=== PATIENT | female | born 1970 | race Caucasian/White ===

== ENCOUNTER 2019-03-31 12:17 | Inpatient (IN) | payer OTHER, SELFPAY ==
[2019-03-31] VITALS (7 sets, daily range): BP systolic 94–110; BP diastolic 54–79; PULSE 74–110; RESP 14–18; TEMP 37.3–37.8; O2SAT 96–100; BMI 34.0; BMI 33.8; BMI 33.9
--- NOTE | 2019-03-31 12:38 | CT_ITS ---
STUDY: CT ABDOMEN AND PELVIS WITH CONTRAST REASON FOR EXAM: Female, 48 years old. Left lower quadrant pain. Prior umbilical hernia. RADIATION DOSAGE (If Supplied By Facility): CTDIvol = ( 15.41 ) mGy, DLP = ( 1268.82 ) mGycm TECHNIQUE: Transaxial images were obtained from the dome of the diaphragm to the symphysis pubis without oral contrast. 100 IV/Oral Isovue 300 was administered. Sagittal and coronal images were reconstructed. Individualized dose optimization techniques were used for this CT. COMPARISON: None. FINDINGS: The visualized lung bases are unremarkable. The visualized portions of the heart are within normal limits. Normal liver. The patent portal vein diameter is 14 mm. Normal gallbladder and extrahepatic biliary system. Normal spleen. Normal pancreas. Normal bilateral adrenal glands. Normal right kidney. Normal left kidney. No hydronephrosis. Normal visualized stomach. There is diverticulosis, with thickening of the distal left colon wall and pericolonic inflammation, consistent with acute diverticulitis. There is a well-defined 4 cm pocket of gas along the medial margin of the distal aspect of the inflamed segment, and to a smaller gas pockets along the anterior margin of the mid and inflamed segment. There is also small volume free intraperitoneal gas. There are a few loops of mildly distended small bowel in the adjacent tissues of the left flank, likely reflecting a low-grade reactive ileus. There is non-visualization of the appendix. Normal abdominal aorta. Normal inferior vena cava. Normal retroperitoneum. Normal urinary bladder. There is a 2.45 x 2.25 x 2.75 cm umbilical hernia containing fat. There are degenerative changes of the lower thoracic and lower lumbar spine. 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 CT/Abdomen/Pelvis WITH Contrast IMPRESSION: 1. Acute diverticulitis of the distal most left colon. There are pockets of extraluminal gas within the pericolonic inflammatory changes, but not a thick walled/mature pericolonic abscess. Small volume free gas also present in the abdomen. No sign of bowel obstruction. 2. Small, fat-containing umbilical hernia. 3. 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 N.B. : The above information has been verbally conveyed by James Johnston MD to Katelynn Almeida MD, on 03/31/2019 14:49:21 (ET). Electronically Signed: James Johnston MD at 14:54 EDT , Service support ,
[2019-03-31 12:49] LABS: Absolute Lymphocyte Count 0.69 X10^3/ul (0.83-4.51); Absolute Neutrophil Count 10.5 X10^3/uL (2.0-7.7); Basophil# 0.01 X10^3/uL; Basophil% 0.1 % (0-1); Hematocrit 35.8 % (37-47); Hemoglobin 12.4 g/dl (12.0-15.0); Lymphocyte # 0.69 X10^3/ul (4.0); Lymphocyte % 5.7 % (19-41); Mean Corp Hgb Conc 34.6 g/gl (32-36); Mean Corpuscular Hgb 30.7 pg (27.0-32.0); Mean Corpuscular Volume 88.6 fL (81-99); Mean Platelet Vol. 9.1 fl (6.2-12.0); Monocyte# 0.88 X10^3/uL; Monocyte% 7.3 % (0-10); Neutrophil # 10.45 X10^3/uL (2.7-7.7); Neutrophil % 86.7 % (47-70); POSITIVE COUNT NO; POSITIVE DIFFERENTIAL NO; POSITIVE MORPHOLOGY NO; Platelet Count 198 K/mm3 (150-450); RBC Distribution Width CV 12.4 % (11.6-14.6); RBC Distribution Width SD 40.2 fl (35.1-43.9); Red Blood Count 4.04 M/mm3 (4.2-5.4); White Blood Count 12.1 K/mm3 (4.4-11.0)
[2019-03-31 13:00] LABS: AST(SGOT) 18 U/L (15-37); Alanine Aminotransfer ALT/SGPT 22 U/L (13-56); Albumin, Serum 3.5 g/dL (3.2-5.0); Alkaline Phosphatase 45 U/L (45-117); Anion Gap 8 (5-15); BUN 11 mg/dL (7-18); BUN/Creat Ratio 15.2 RATIO (10-20); Bilirubin, Direct 0.36 mg/dL (0.00-0.30); Calcium,Total 8.7 mg/dL (8.5-10.1); Chloride 108 mmol/L (98-107); Creatinine, Serum 0.72 mg/dL (0.55-1.02); EST Glomerular Filtration Rate 92 mL/min (>60); Est Glom Filt Rate - Afr Amer 112 mL/min (>60); Estimated Creatinine Clearance 94.94 ml/min; Globulin 3.6 g/dL (2.2-4.2); Glucose 130 mg/dL (74-106); Potassium 3.5 mmol/L (3.5-5.1); Protein, Total 7.1 g/dL (6.4-8.2); Sodium Level 137 mmol/L (136-145)
[2019-03-31] MEDS: 0.9% Normal Saline 1,000 ML 150 ML IV (13:05)
[2019-03-31 13:07] LABS: Internal QC Validated? YES +Cl - CLEAR BKGD; Pregnancy, Serum, hCG Quali. NEGATIVE Negative
[2019-03-31 14:08] LABS: White Blood Cells 0 SEEN /hpf (0-5)
[2019-03-31 14:14] LABS: Color, Urine Yellow (Yellow); Glucose, Dipstick Normal (Normal); Ketone-Dipstick 50 mg/dl (Negative); Leukocyte Esterase-Dipstick 25 /ul (Negative); Nitrite-Dipstick Negative (Negative); Occult Blood-Urine 25 /ul (Negative); Protein-Dipstick 15 mg/dl (Negative); Specific Gravity, Urine 1.015 (1.002-1.030); Urine Bilirubin Dipstick Negative (Negative); Urine Clarity Clear (Clear); Urine Urobilinogen Normal (Normal)
[2019-03-31 14:23] LABS: Bacteria 1+ /hpf (None Seen); Mucous, Urine 1+ /hpf (<or=2+); Red Blood Cells-Urine 0-5 SEEN /hpf (0-5); Squamous Epithelial Cells - UA 0-5 SEEN /hpf (5-10)
[2019-03-31] MEDS: Morphine 4 MG/ML Syringe IV (14:50)
[2019-03-31] MEDS: Ondansetron 4 MG/2 ML Vial IV (14:50)
--- NOTE | 2019-03-31 15:02 | ED.VISSUMM ---
- ER Visit Summary Date of Service: 03/31/19 Chief Complaint: [Abdominal pain History of Present Illness: The patient is a 48 F who presents with abdominal pain that started last evening, worse in the left lower quadrant. She reports subjective fever and chills. She denies nausea or vomiting. She states she had some recent constipation but that seems to be resolved. She denies urinary symptoms. Patient has had prior umbilical hernia repair. She denies any other past surgical history. Physical Examination: Blood pressure is 107/62, temperature 100.0, heart rate 83, respiratory rate 16, pulse ox 96% on room air. Patient is sitting upright in bed no acute distress. She is nontoxic-appearing. Head and neck examination is normal. Heart is regular rate and rhythm. Lung sounds are clear. Abdomen is soft with mild tenderness in the lower abdomen. There is no guarding or rebound. Hypoactive bowel sounds are present. Test Results: CBC was a white count of 12.1 with 86% neutrophils. Chemistry studies unremarkable. LFTs significant only for total bili of 1.7 and direct bili 0.36. Urinalysis is unremarkable. test negative. CT abdomen and pelvis with IV and p.o. contrast reveals acute diverticulitis of the distal left colon. There are pockets of extraluminal gas but no focal abscess. There is a small volume of free gas. Emergency Department Course and Treatment: Patient was given Toradol with EMS. She initially declined anything further for pain. After returning from CT scan she did request further pain medication was given a dose of morphine and Zofran. Once CT results were obtained patient is given a dose of Zosyn. I will speak with surgery. Treatment Plan: [] Disposition: Admit Impression: Diverticulitis with perforation This note was generated with Arrivelyation software. It may contain incorrect words, spelling, and punctuation that were not noted in review of the chart prior to signing ED Disposition - Plan for ED Patient: Referrals: Care Physician,No Primary [Primary Care Provider] -
--- NOTE | 2019-03-31 15:54 | PCM.HP.STD ---
History of Present Illness Date of Admission: 03/31/19 The patient is a 48 year old F presented to the ER due to left lower quadrant pain. Patient states pain started at 8 PM yesterday. Patient had pizza and strawberries for dinner. Patient denies he denies any nausea or vomiting and did have a little bit of flatus yesterday and a normal bowel movement around noon. Patient states the left lower quadrant pain got worse this morning right rated at 8/10 currently it is a 5/10. Patient has not had anything to eat today. Did states she had fevers and chills last night. Patient's temperature is currently 100. Patient states in the past she may have had another episode however it resolved on its own she is never had to get antibiotics. Patient has never had a colonoscopy. Denies any family history of colon cancer. Patient's only surgical history umbilical hernia repair with mesh about 2 years ago in [place]. Patient CT abdomen pelvis which shows sigmoid diverticulitis with 2 air pockets larger one is 4 cm- ? in colon, no obvious abscess or free fluid, umbilical hernia with fat. Patient's white blood count is 12.1 patient is getting Zosyn IV in the ER. 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 Denies: Constipation, Diarrhea, Nausea, Vomiting Genitourinary: Denies: Dysuria Skin: Denies: Rash Neurological: Denies: Balance problems Psychiatric: Denies: Depression Hematologic/ Lymphatic: Denies: Easy Bleeding VTE Information - Inpt Only VTE Present on Admission: Yes VTE Mechan Device Prophylaxis: SCD's VTE Pharm Prophylaxis ordered?: No Reason prophylaxis not ordered:: Medical Contraindication - Possible need for surgery - Physical Exam General: Alert, Oriented x3, Cooperative, No apparent distress HEENT: Atraumatic Lungs: Normal air movement Cardiovascular: Regular rate Abdomen: Soft, Non-Distended, Passing Flatus, Obese, Tender - Left mid abdomen, no peritoneal signs Extremities: No clubbing, No cyanosis, No edema Skin: No rashes Neurological: Cranial nerves II-XII grossly intact Psych/Mental Status: Normal Affect Vital Signs Temp Pulse Resp BP Pulse Ox 100.0 F H 74 14 108/79 100 03/31/19 12:18 03/31/19 14:28 03/31/19 14:28 03/31/19 14:28 03/31/19 14:28 Oxygen Delivery Method Room Air Weight: 217 lb 2.485 oz Body Mass Index (BMI) 34.0 Laboratory Tests Past 24 Hrs 03/31/19 03/31/19 03/31/19 12:25 12:25 12:25 WBC 12.1 H RBC 4.04 L Hgb 12.4 Hct 35.8 L MCV 88.6 MCH 30.7 MCHC 34.6 RDW 12.4 RDW Differential 40.2 Plt Count 198 MPV 9.1 Immature Gran % (Auto) 0.200 Neut % (Auto) 86.7 H Lymph % (Auto) 5.7 L [place]elope % (Auto) 7.3 Eos % (Auto) 0.0 Baso % (Auto) 0.1 Absolute Neuts (auto) 10.5 H Absolute Lymphs (auto) 0.69 L Total Counted Not Reportable Sodium 137 Potassium 3.5 Chloride 108 H Carbon Dioxide 21.0 Anion Gap 8 BUN 11 Creatinine 0.72 Estim Creat Clear Calc 94.94 Est GFR (MDRD) Af Amer 112 Est GFR (MDRD) Non-Af 92 BUN/Creatinine Ratio 15.2 Glucose 130 H Calcium 8.7 Total Bilirubin 1.70 H Direct Bilirubin 0.36 H AST 18 ALT 22 Alkaline Phosphatase 45 Total Protein 7.1 Albumin 3.5 Globulin 3.6 Serum , Qual NEGATIVE Urine Color Urine Clarity Urine pH Ur Specific [place] Urine Protein Urine Glucose (UA) Urine Ketones Urine Occult Blood Urine Nitrite Urine Bilirubin Urine Urobilinogen Ur Leukocyte Esterase Urine RBC Urine WBC Ur Squamous Epith Cells Urine Bacteria Urine Mucus 03/31/19 13:58 WBC RBC Hgb Hct MCV MCH MCHC RDW RDW Differential Plt Count MPV Immature Gran % (Auto) Neut % (Auto) Lymph % (Auto) [place]elope % (Auto) Eos % (Auto) Baso % (Auto) Absolute Neuts (auto) Absolute Lymphs (auto) Total Counted Sodium Potassium Chloride Carbon Dioxide Anion Gap BUN Creatinine Estim Creat Clear Calc Est GFR (MDRD) Af Amer Est GFR (MDRD) Non-Af BUN/Creatinine Ratio Glucose Calcium Total Bilirubin Direct Bilirubin AST ALT Alkaline Phosphatase Total Protein Albumin Globulin Serum , Qual Urine Color Yellow Urine Clarity Clear Urine pH 6.0 Ur Specific [place] 1.015 Urine Protein 15 H Urine Glucose (UA) Normal Urine Ketones 50 H Urine Occult Blood 25 H Urine Nitrite Negative Urine Bilirubin Negative Urine Urobilinogen Normal Ur Leukocyte Esterase 25 H Urine RBC 0-5 SEEN Urine WBC 0 SEEN Ur Squamous Epith Cells 0-5 SEEN Urine Bacteria 1+ Urine Mucus 1+ Assessment/Plan 48-year-old female with perforated sigmoid diverticulitis with pockets of air?in colon, with some free air by liver 1. Discussed with patient we will keep her n.p.o./IV fluids/IV Zosyn 3.375 g IV every 8 hours. Discussed with patient that if her pain got worse or fevers or increased white blood cell count she would possibly need an urgent surgery which would consist of possible diagnostic laparoscopy, possible exploratory laparotomy, possible bowel resection. Discussed with patient the plan would be to keep her n.p.o. with IV fluids and IV antibiotics until her pain had resolved we also plan to get a follow-up CT abdomen pelvis in approximately 3 days. Patient and her family were agreeable with plan. All questions have been answered and had no further questions at this time. Meseret Gavin M.D. Pager: [phone] [facility] [address] [place] [address], [facility], [address] [place] [address] Office: [phone]
--- NOTE | 2019-03-31 15:58 | HP.PCM_ITS ---
History of Present Illness Date of Admission: 03/31/19 The patient is a 48 year old F presented to the ER due to left lower quadrant pain. Patient states pain started at 8 PM yesterday. Patient had pizza and strawberries for dinner. Patient denies he denies any nausea or vomiting and did have a little bit of flatus yesterday and a normal bowel movement around noon. Patient states the left lower quadrant pain got worse this morning right rated at 8/10 currently it is a 5/10. Patient has not had anything to eat today. Did states she had fevers and chills last night. Patient's temperature is currently 100. Patient states in the past she may have had another episode however it resolved on its own she is never had to get antibiotics. Patient has never had a colonoscopy. Denies any family history of colon cancer. Patient's only surgical history umbilical hernia repair with mesh about 2 years ago in [place]. Patient CT abdomen pelvis which shows sigmoid diverticulitis with 2 air pockets larger one is 4 cm- ? in colon, no obvious abscess or free fluid, umbilical hernia with fat. Patient's white blood count is 12.1 patient is getting Zosyn IV in the ER. 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 Denies: Constipation, Diarrhea, Nausea, Vomiting Genitourinary: Denies: Dysuria Skin: Denies: Rash Neurological: Denies: Balance problems Psychiatric: Denies: Depression Hematologic/ Lymphatic: Denies: Easy Bleeding VTE Information - Inpt Only VTE Present on Admission: Yes VTE Mechan Device Prophylaxis: SCD's VTE Pharm Prophylaxis ordered?: No Reason prophylaxis not ordered:: Medical Contraindication - Possible need for surgery - Physical Exam General: Alert, Oriented x3, Cooperative, No apparent distress HEENT: Atraumatic Lungs: Normal air movement Cardiovascular: Regular rate Abdomen: Soft, Non-Distended, Passing Flatus, Obese, Tender - Left mid abdomen, no peritoneal signs Extremities: No clubbing, No cyanosis, No edema Skin: No rashes Neurological: Cranial nerves II-XII grossly intact Psych/Mental Status: Normal Affect Vital Signs Temp Pulse Resp BP Pulse Ox 100.0 F H 74 14 108/79 100 03/31/19 12:18 03/31/19 14:28 03/31/19 14:28 03/31/19 14:28 03/31/19 14:28 Oxygen Delivery Method Room Air Weight: 217 lb 2.485 oz Body Mass Index (BMI) 34.0 Laboratory Tests Past 24 Hrs 03/31/19 03/31/19 03/31/19 12:25 12:25 12:25 WBC 12.1 H RBC 4.04 L Hgb 12.4 Hct 35.8 L MCV 88.6 MCH 30.7 MCHC 34.6 RDW 12.4 RDW Differential 40.2 Plt Count 198 MPV 9.1 Immature Gran % (Auto) 0.200 Neut % (Auto) 86.7 H Lymph % (Auto) 5.7 L Henry % (Auto) 7.3 Eos % (Auto) 0.0 Baso % (Auto) 0.1 Absolute Neuts (auto) 10.5 H Absolute Lymphs (auto) 0.69 L Total Counted Not Reportable Sodium 137 Potassium 3.5 Chloride 108 H Carbon Dioxide 21.0 Anion Gap 8 BUN 11 Creatinine 0.72 Estim Creat Clear Calc 94.94 Est GFR (MDRD) Af Amer 112 Est GFR (MDRD) Non-Af 92 BUN/Creatinine Ratio 15.2 Glucose 130 H Calcium 8.7 Total Bilirubin 1.70 H Direct Bilirubin 0.36 H AST 18 ALT 22 Alkaline Phosphatase 45 Total Protein 7.1 Albumin 3.5 Globulin 3.6 Serum , Qual NEGATIVE Urine Color Urine Clarity Urine pH Ur Specific [place] Urine Protein Urine Glucose (UA) Urine Ketones Urine Occult Blood Urine Nitrite Urine Bilirubin Urine Urobilinogen Ur Leukocyte Esterase Urine RBC Urine WBC Ur Squamous Epith Cells Urine Bacteria Urine Mucus 03/31/19 13:58 WBC RBC Hgb Hct MCV MCH MCHC RDW RDW Differential Plt Count MPV Immature Gran % (Auto) Neut % (Auto) Lymph % (Auto) Henry % (Auto) Eos % (Auto) Baso % (Auto) Absolute Neuts (auto) Absolute Lymphs (auto) Total Counted Sodium Potassium Chloride Carbon Dioxide Anion Gap BUN Creatinine Estim Creat Clear Calc Est GFR (MDRD) Af Amer Est GFR (MDRD) Non-Af BUN/Creatinine Ratio Glucose Calcium Total Bilirubin Direct Bilirubin AST ALT Alkaline Phosphatase Total Protein Albumin Globulin Serum , Qual Urine Color Yellow Urine Clarity Clear Urine pH 6.0 Ur Specific [place] 1.015 Urine Protein 15 H Urine Glucose (UA) Normal Urine Ketones 50 H Urine Occult Blood 25 H Urine Nitrite Negative Urine Bilirubin Negative Urine Urobilinogen Normal Ur Leukocyte Esterase 25 H Urine RBC 0-5 SEEN Urine WBC 0 SEEN Ur Squamous Epith Cells 0-5 SEEN Urine Bacteria 1+ Urine Mucus 1+ Assessment/Plan 48-year-old female with perforated sigmoid diverticulitis with pockets of air?in colon, with some free air by liver 1. Discussed with patient we will keep her n.p.o./IV fluids/IV Zosyn 3.375 g IV every 8 hours. Discussed with patient that if her pain got worse or fevers or increased white blood cell count she would possibly need an urgent surgery which would consist of possible diagnostic laparoscopy, possible exploratory laparotomy, possible bowel resection. Discussed with patient the plan would be to keep her n.p.o. with IV fluids and IV antibiotics until her pain had resolved we also plan to get a follow-up CT abdomen pelvis in approximately 3 days. Patient and her family were agreeable with plan. All questions have been answered and had no further questions at this time. Meseret Gavin M.D. Pager: [phone] [facility] [address] [place] [address], [facility], [address] [place] [address] Office: [phone]
--- NOTE | 2019-03-31 16:00 | ED.RN ---
CONTINUE TO WAIT FOR ATB. PHARMACY HAS BEEN CALLED BY IBETH UREÑA.
[2019-03-31] MEDS: Ketorolac 15 MG/ML Vial IV ×2 (19:10→22:58)
[2019-03-31] MEDS: 0.9% NaCl Peripheral Flush Adult/Peds IV ×2 (19:10→20:59)
[2019-03-31] MEDS: 0.9% Normal Saline 1,000 ML 999 ML IV ×2 (20:55→20:59)
--- NOTE | 2019-03-31 22:01 | PCM.PN.BLA ---
Progress Note Came see the patient due to her rate of 110 and blood pressure 94/58. Patient states her pain is about the same denies it being any worse. Patient did state that she had very little to drink today or after 8 PM yesterday. Patient did void after getting to the floor however it was not measured. Patient's blood pressures and pulse were taken with the monitor. Patient was given 2 L normal saline and the pressure and pulse were about the same from before the saline with the monitor. However when these were rechecked manually the heart rate was 72 and the systolic blood pressure was 102. Patient is not on any blood pressure meds and states that her blood pressure may run a little bit on the low side from the last time she had surgery for her umbilical hernia. We will continue monitoring the vital signs closely. Abdomen soft, nondistended, tender in the left mid abdomen no peritoneal signs. Patient understands that if her pain were to get worse or her vital signs are stable she would need urgent surgery.
[2019-04-01] VITALS (16 sets, daily range): BP systolic 84–108; BP diastolic 48–76; PULSE 60–121; RESP 16–39; TEMP 36.6–37.2; O2SAT 96–100; BMI 33.8
[2019-04-01] MEDS: Ketorolac 15 MG/ML Vial IV (03:52)
[2019-04-01 06:14] LABS: Absolute Lymphocyte Count 1.06 X10^3/ul (0.83-4.51); Absolute Neutrophil Count 10.9 X10^3/uL (2.0-7.7); Basophil# 0.01 X10^3/uL; Basophil% 0.1 % (0-1); Hematocrit 34.5 % (37-47); Hemoglobin 11.5 g/dl (12.0-15.0); Lymphocyte # 1.06 X10^3/ul (4.0); Lymphocyte % 8.5 % (19-41); Mean Corp Hgb Conc 33.3 g/gl (32-36); Mean Corpuscular Hgb 30.1 pg (27.0-32.0); Mean Corpuscular Volume 90.3 fL (81-99); Mean Platelet Vol. 9.3 fl (6.2-12.0); Monocyte# 0.39 X10^3/uL; Monocyte% 3.1 % (0-10); Neutrophil # 10.92 X10^3/uL (2.7-7.7); Platelet Count 189 K/mm3 (150-450); RBC Distribution Width CV 12.9 % (11.6-14.6); RBC Distribution Width SD 41.6 fl (35.1-43.9); Red Blood Count 3.82 M/mm3 (4.2-5.4); White Blood Count 12.4 K/mm3 (4.4-11.0)
[2019-04-01 06:35] LABS: AST(SGOT) 14 U/L (15-37); Alanine Aminotransfer ALT/SGPT 19 U/L (13-56); Albumin, Serum 2.6 g/dL (3.2-5.0); Alkaline Phosphatase 36 U/L (45-117); Anion Gap 10 (5-15); BUN 10 mg/dL (7-18); BUN/Creat Ratio 12.7 RATIO (10-20); Bilirubin, Direct 0.51 mg/dL (0.00-0.30); Calcium,Total 7.5 mg/dL (8.5-10.1); Chloride 113 mmol/L (98-107); Creatinine, Serum 0.79 mg/dL (0.55-1.02); EST Glomerular Filtration Rate 83 mL/min (>60); Est Glom Filt Rate - Afr Amer 101 mL/min (>60); Estimated Creatinine Clearance 86.53 ml/min; Globulin 3.4 g/dL (2.2-4.2); Glucose 100 mg/dL (74-106); POSITIVE COUNT NO; POSITIVE DIFFERENTIAL NO; Potassium 3.9 mmol/L (3.5-5.1); Sodium Level 144 mmol/L (136-145)
[2019-04-01 07:05] LABS: Differential Indicated SCAN CRITERIA MET; POSITIVE MORPHOLOGY YES
[2019-04-01 07:06] LABS: Differential Comment SCANNED; Platelet Estimate ADEQUATE (ADEQ)
--- NOTE | 2019-04-01 07:48 | PN.SURG_ITS ---
Subjective: Patient still having left-sided abdominal pain states is not any worse, pain is been controlled with Toradol patient's blood pressure is still been in the mid to high 90s for systolic which may be normal for her as her heart rates been between 60 and 70. Patient did have some flatus as well as some diarrhea. Her white blood count 12.4. - Physical Exam General: Alert, Oriented x3, Cooperative, No apparent distress HEENT: Atraumatic Lungs: Normal air movement Cardiovascular: Regular rate Abdomen: Soft, Non-Distended, Obese, Tender - Left mid/upper abdomen, no peritoneal signs Extremities: No clubbing, No cyanosis, No edema Neurological: Cranial nerves II-XII grossly intact Psych/Mental Status: Normal Affect Vital Signs Temp Pulse Resp BP Pulse Ox 98.8 F 68 16 96/60 100 04/01/19 06:59 04/01/19 06:59 04/01/19 06:59 04/01/19 06:59 04/01/19 06:59 Oxygen Delivery Method Room Air Weight: 216 lb 4.375 oz Body Mass Index (BMI) 33.8 Intake and Output for Last 24 Hours 03/30/19 03/31/19 04/01/19 23:59 23:59 23:59 Intake Total 3940 / 3940 Output Total 200 / 200 Balance 3740 / 3740 Laboratory Tests Past 24 Hrs 03/31/19 03/31/19 03/31/19 12:25 12:25 12:25 WBC 12.1 H RBC 4.04 L Hgb 12.4 Hct 35.8 L MCV 88.6 MCH 30.7 MCHC 34.6 RDW 12.4 RDW Differential 40.2 Plt Count 198 MPV 9.1 Immature Gran % (Auto) 0.200 Neut % (Auto) 86.7 H Lymph % (Auto) 5.7 L [place] % (Auto) 7.3 Eos % (Auto) 0.0 Baso % (Auto) 0.1 Absolute Neuts (auto) 10.5 H Absolute Lymphs (auto) 0.69 L Total Counted Not Reportable Differential Comment Platelet Estimate Sodium 137 Potassium 3.5 Chloride 108 H Carbon Dioxide 21.0 Anion Gap 8 BUN 11 Creatinine 0.72 Estim Creat Clear Calc 94.94 Est GFR (MDRD) Af Amer 112 Est GFR (MDRD) Non-Af 92 BUN/Creatinine Ratio 15.2 Glucose 130 H Calcium 8.7 Total Bilirubin 1.70 H Direct Bilirubin 0.36 H AST 18 ALT 22 Alkaline Phosphatase 45 Total Protein 7.1 Albumin 3.5 Globulin 3.6 Serum , Qual NEGATIVE Urine Color Urine Clarity Urine pH Ur Specific [place] Urine Protein Urine Glucose (UA) Urine Ketones Urine Occult Blood Urine Nitrite Urine Bilirubin Urine Urobilinogen Ur Leukocyte Esterase Urine RBC Urine WBC Ur Squamous Epith Cells Urine Bacteria Urine Mucus 03/31/19 04/01/19 04/01/19 13:58 05:40 05:40 WBC 12.4 H RBC 3.82 L Hgb 11.5 L Hct 34.5 L MCV 90.3 MCH 30.1 MCHC 33.3 RDW 12.9 RDW Differential 41.6 Plt Count 189 MPV 9.3 Immature Gran % (Auto) 0.300 Neut % (Auto) 88.0 H Lymph % (Auto) 8.5 L [place] % (Auto) 3.1 Eos % (Auto) 0.0 Baso % (Auto) 0.1 Absolute Neuts (auto) 10.9 H Absolute Lymphs (auto) 1.06 Total Counted Not Reportable Differential Comment SCANNED Platelet Estimate ADEQUATE Sodium 144 Potassium 3.9 Chloride 113 H Carbon Dioxide 21.0 Anion Gap 10 BUN 10 Creatinine 0.79 Estim Creat Clear Calc 86.53 Est GFR (MDRD) Af Amer 101 Est GFR (MDRD) Non-Af 83 BUN/Creatinine Ratio 12.7 Glucose 100 Calcium 7.5 L Total Bilirubin 2.50 H Direct Bilirubin 0.51 H AST 14 L ALT 19 Alkaline Phosphatase 36 L Total Protein 6.0 L Albumin 2.6 L Globulin 3.4 Serum , Qual Urine Color Yellow Urine Clarity Clear Urine pH 6.0 Ur Specific [place] 1.015 Urine Protein 15 H Urine Glucose (UA) Normal Urine Ketones 50 H Urine Occult Blood 25 H Urine Nitrite Negative Urine Bilirubin Negative Urine Urobilinogen Normal Ur Leukocyte Esterase 25 H Urine RBC 0-5 SEEN Urine WBC 0 SEEN Ur Squamous Epith Cells 0-5 SEEN Urine Bacteria 1+ Urine Mucus 1+ Medical Necessity - Tobacco Use Smoking Status: Never smoker Assessment/Plan 48-year-old female with perforated sigmoid diverticulitis with pockets of air 1. We will continue n.p.o./IV fluids. Continue IV Zosyn. Again discussed with patient that if her pain got worse or fevers or increased white blood cell count she would possibly need an urgent surgery which would consist of possible diagnostic laparoscopy, possible exploratory laparotomy, possible bowel resection, possible ostomy. Blood counts 12.4 from 12.1 we will continue to monitor closely. Patient had no further questions this time. Meseret Gavin M.D. Pager: [phone] [facility] [address] [place] [address], [address] [place] [address] Office: [phone]
--- NOTE | 2019-04-01 09:58 | PCM.PN.BLA ---
Progress Note Patient is pain is worse this morning. Is not able to get up and move around well due to the pain. Discussed with patient that I am sure that this will get better without surgery. She was agreeable to proceed with diagnostic laparoscopy, possible laparotomy, possible bowel resection, possible ostomy. Did discuss the procedure as well as risks including but not limited to bleeding, infection/abscess, leak at anastomosis if one is done, injury to another organ including (small bowel, colon, ureter, etc.), hernia at incision sites, need for further surgery in the future since she is never had a colonoscopy and anesthesia. Patient and her family and all their questions answered have no further questions this time. We will plan for surgery early afternoon. Meseret Gavin M.D. Pager: [phone] [facility] [address] [place] [address], [address] [place] [address] Office: [phone]
--- NOTE | 2019-04-01 10:01 | PN_ITS ---
Progress Note Patient is pain is worse this morning. Is not able to get up and move around well due to the pain. Discussed with patient that I am sure that this will get better without surgery. She was agreeable to proceed with diagnostic laparoscopy, possible laparotomy, possible bowel resection, possible ostomy. Did discuss the procedure as well as risks including but not limited to bleeding, infection/abscess, leak at anastomosis if one is done, injury to another organ including (small bowel, colon, ureter, etc.), hernia at incision sites, need for further surgery in the future since she is never had a colonoscopy and anesthesia. Patient and her family and all their questions answered have no further questions this time. We will plan for surgery early afternoon. Meseret Gavin M.D. Pager: [phone] [facility] [address] [place] [address], [address] [place] [address] Office: [phone]
--- NOTE | 2019-04-01 10:12 | EKG12_ITS ---
Test Reason : PRE-OP Blood Pressure : / mmHG Vent. Rate : 108 BPM Atrial Rate : 108 BPM P-R Int : 150 ms QRS Dur : 076 ms QT Int : 304 ms P-R-T Axes : 036 071 052 degrees QTc Int : 407 ms Sinus tachycardia Otherwise normal ECG Confirmed by CLEMENTINE HARRISON, JENNIFER ([id number]), content editor YEFRI FREDERICK ([id number]) on 04/03/2019 11:39:35 AM Referred By: DEON Confirmed By:JENNIFER SPRING MD
[2019-04-01] MEDS: Morphine 2 MG/ML Syringe IV (10:30)
[2019-04-01] MEDS: 0.9% Normal Saline 1,000 ML 999 ML IV (10:40)
--- NOTE | 2019-04-01 11:12 | CASEMGMT ---
Social Work Note Pt is listed as self-pay and is [place]. [employer] Vergara, working with pt. Bhargavi Echeverria SIEBEL CONSULTANT, TELEVISION REPORTER
--- NOTE | 2019-04-01 12:02 | NURSING ---
REPORT CALLED TO IBETH PINA IN [facility]
--- NOTE | 2019-04-01 14:19 | SUR.PREOP ---
1410 FENTANYL 25MCG IV GIVEN, PULSE OX 94% ON RA. PAIN 6/10 TO ABD. WILL CONTINUE MONITOR.
--- NOTE | 2019-04-01 15:00 | COL_PTH ---
PATIENT: MANE AGUILAR LOC: [facility] U#:[id number] AGE/SX: 48/F ROOM: [facility] RE03/31/[address]: Dr. Meseret Gavin MD : 1970 BED: 1 DIS: 04/05/2019 SPEC #: [id number] RECD: 04/02/19 10:17 STATUS: STEWART RERenee #: [id number] BHUPENDRA: 04/01/19 15:[address]: Meseret Gavin DEPT: SURGICAL PATHOLOGY RECD BY: Jairo Oden ENTERED: 04/02/19 11:19 SP TYPE: COLON OTHR DR: Dr. Sukhjinder Poon MD No Primary Care Phys Tissues: A - Umbilical region B - Colon, NOS C - Transverse colon Procedures: Surgery Specimen Level IV Surgery Specimen Level V HEADER OPERATION: Laparoscopy converted to laparotomy, left hemicolectomy PRE-OP DIAGNOSIS: Left lower quadrant pain TISSUE SUBMITTED: A - Explanted umbilical mesh, B - Portion of sigmoid colon suture christensen distal, C - Proximal colon/distal transverse, marked with suture, unmarked in BTW segment of sigmoid and proximal MICROSCOPIC DIAGNOSIS A. Explanted umbilical mesh, removal: Synthetic mesh-like material. Fibrous tissue with associated foreign body type giant cells and acute and chronic inflammation. One benign lymph node. B. Sigmoid colon, segmental resection: Diverticular disease of colon with rupture and associated pericolonic abscess formation. Three out of three lymph nodes with no pathologic change. Focal acute serositis. Margins of excision with no pathologic change. C. Proximal colon/distal transverse colon, segmental resections: Mild nonspecific chronic inflammation and melanosis coli. AM:sudha 04/04/19 MICROSCOPIC DESCRIPTION Slides are reviewed. GROSS DESCRIPTION A - Received is one container labeled with the patient's name and not further designated. The specimen consists of a discoid fragment of pink-beaver soft tissue with embedding mesh-like material measuring 4.5 x 3.2 x 1 cm. Sections do not reveal mass lesions. Felling Machine Operator sections are submitted in one cassette. / AM:sudha 04/02/19 B - Received in fixative is one container labeled with the patient's name and designated sigmoid colon. The specimen consists of a 16.5 cm segment of bowel with attached beaver-yellow fibrofatty tissue. The mucosa is light beaver in color and thrown into normal fold. No mucosal mass lesions are identified. One end of the bowel is stapled. Serial sections reveal multiple diverticula some of which appear to be associated with balloon-like distensions ranging in size from 2 to 5.5 cm. One diverticulum is associated with a periluminal sinus measuring 3 cm in greatest dimension and suspicious for area of perforation. The attached fibrofatty tissue contains a number of grossly unremarkable lymph nodes. Felling Machine Operator sections are submitted as follows: 1 - open mucosal margin, 2 - closed mucosal margin, 3 & 4 - possible ruptured diverticulum, 5 - nonruptured diverticulum, 6 - diverticulum associated with marked dilation, 7 - customer relations representative lymph nodes, 8 - customer relations representative section of pericolic soft tissue in area of diverticulum. / AM:sudha 04/03/19 C - Received in fixative is one container labeled with the patient's name and designated proximal colon/distal transverse. The specimen consists of three fragments. One fragment consists of beaver-yellow fibrofatty tissue measuring 8 x 6 x 2 cm. Dissection of this fibrofatty tissue does not reveal mass lesions. The other two segments consist of one segment of bowel with a diameter of 3 cm in length and 2.5 cm. The attached fibrofatty tissue is sectioned and reveals yellow fatty tissue. The mucosa is smooth, glistening in color and thrown into normal folds. No mucosal mass lesions are identified. The other segment of bowel is similar in appearance but measures 6 cm in length and has a diameter of 3 cm. A?suture is present along one mucosal margin. This edge is inked in black ink. The opposite margin is inked in blue ink. The mucosa is thrown into normal folds. No mass lesions are identified. Felling Machine Operator sections on this second fragment are submitted in cassettes 3-6 (cassettes 3 & 4 contain the mucosal margins and cassettes 5 & 6 contain customer relations representative sections from mid portion of segment of bowel with suture). / AM:sudha 04/03/19 TC:2 CPT: 09754, 00809 x2
--- NOTE | 2019-04-01 17:47 | NURSING ---
REPORT CALLED TO IBETH BEARD IN ICU
--- NOTE | 2019-04-01 18:16 | PCM.OPRPT ---
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 Sigmoid colon, 2. Proximal colon/distal transverse colon with suture marked came the proximal colon margin, second specimen is the in between segment of the proximal colon and sigmoid colon Drains: Gimenez 200 cc Estimated Blood Loss (mL): 100 cc Fluids Replaced: 2600 cc Description of Procedure: Indications: 48-year-old female presented to the ER with perforated diverticulitis. This morning patient's pain was worse discussed with patient would plan for diagnostic laparoscopy, possible laparotomy, possible bowel resection, possible ostomy. Patient was agreeable to proceed. Description of procedure. Patient was brought to the operating room placed supine on the operating table. Timeout was completed verifying correct patient, procedure, site, positioning, special equipment prior to beginning procedure. General anesthesia was induced. A nasogastric tube was placed. Incision was made in the supraumbilical midline with a 15 blade scalpel deepened to the fascia. Fascia was elevated and incised. Peritoneum was elevated and incised. Entry into the peritoneum was confirmed visually. Virk trochars placed. The abdomen was insufflated to the 12 to 15 mmHg. Patient tolerated insufflation well. Laparoscope was inserted. Abdomen was noted to have purulent beaver/yellow fluid throughout, dilated small bowel. A 5 mm trocar was placed in the right lower quadrant. Purulent fluid was suctioned and sent for culture. Due to the adhesion of the omentum and the area of perforation in the descending/sigmoid colon unable to continue laparoscopically. Supraumbilical incision was converted to larger midline laparotomy incision with a 10 blade scalpel. Deepened to the fascia with electrocautery. A extra-large wound protector was placed. The white line of Toldt was incised once additional fluid had been suctioned. This was followed to the pelvis to mobilize the distal sigmoid. Next the white line of Toldt was followed and incised to the splenic flexure. Also started mobilization from the mid transverse colon to the splenic flexure. Once the splenic flexure was mobilized. YANI 100 cm stapler was used to come across the distal sigmoid. LigaSure impact was used to come across the mesentery. The colon was divided with YANI 100 cm stapler proximal to the area of perforation. The sigmoid colon was sent off the table as specimen with suture marking the distal end. Abdomen was copiously irrigated with 5 liters of saline. Wound protector was removed. A colostomy was planned in the mid rectus in the left upper quadrant of the abdomen. A disc of skin was removed the subcutaneous tissue was incised as well as the fascia. The rectus was split and the peritoneum was also incised. 2 fingers were easily able to fit through the ostomy incision. The distal descending colon was brought through the ostomy site, which initially appeared viable. 15 Fr round Hema was placed through the RLQ trocar incision. Gowns and gloves were changed. Fascia of the midline incision was closed with 1-0 PDS looped suture. Wound was irrigated. skin was loosing closed with skin cezar and saline soak tegaderm mert x 5 in wound. Returning to the colostomy, there was no bleeding with opening the colon to mature. Unable to pull up any additional colon, the wound was reopened and additional mesentery was divided with the ligasure impact to allow the distal transverse colon to reach the LUQ ostomy site without tension. The distal transverse colon appeared viable, colon was divided with metzenbaum scissors. The splenic flexure/prox. descending colon was sent to pathology with suture marking the proximal colon (distal transverse colon) of specimen. Again the Midline wound was closed with 1-0 looped PDS, wound was irrigated, skin closed with skin cezar and interrupted saline soaked tegaderms after wound was irrigated. HEMA was secured with 3-0 nylon suture. The distal transverse colostomy was matured in brook fashion with 3-0 vicryl interrupted sutures. stoma paste and appliance was applied. Pt tolerated procedure well and was able to be weaned off the small amount of pressors at the end of the case. Pt was extubated and taken to the ICU in stable condition. - Complications none
[2019-04-01] MEDS: Lactated Ringers 1,000 ML 999 ML IV (18:40)
[2019-04-01 19:25] LABS: Anion Gap 9 (5-15); BUN 9 mg/dL (7-18); BUN/Creat Ratio 15.2 RATIO (10-20); Chloride 115 mmol/L (98-107); Creatinine, Serum 0.59 mg/dL (0.55-1.02); EST Glomerular Filtration Rate 116 mL/min (>60); Est Glom Filt Rate - Afr Amer 140 mL/min (>60); Estimated Creatinine Clearance 115.86 ml/min; Glucose 99 mg/dL (74-106); Magnesium 1.2 mg/dL (1.6-2.6); Potassium 3.8 mmol/L (3.5-5.1); Sodium Level 142 mmol/L (136-145)
[2019-04-01] MEDS: Lactated Ringers 1,000 ML 150 ML IV (19:55)
[2019-04-01] MEDS: Magnesium Sulfate 4gm/100mL 4 GM/100 ML IV.SOLN. IV (20:13)
[2019-04-01] MEDS: 0.9% NaCl Peripheral Flush Adult/Peds IV ×2 (21:07→21:09)
[2019-04-01] MEDS: fentaNYL 100 MCG/2 ML Ampul 25 MCG IV (21:07)
[2019-04-02] VITALS (16 sets, daily range): BP systolic 87–127; BP diastolic 58–85; PULSE 82–99; RESP 16–25; TEMP 36.2–36.9; O2SAT 92–99
[2019-04-02] MEDS: Lactated Ringers 1,000 ML 150 ML IV ×3 (03:16→17:28)
[2019-04-02 04:28] LABS: Hematocrit 32.9 % (37-47); Hemoglobin 11.1 g/dl (12.0-15.0); Mean Corp Hgb Conc 33.7 g/gl (32-36); Mean Corpuscular Hgb 30.7 pg (27.0-32.0); Mean Corpuscular Volume 90.9 fL (81-99); Red Blood Count 3.62 M/mm3 (4.2-5.4); White Blood Count 5.8 K/mm3 (4.4-11.0)
[2019-04-02 04:29] LABS: Absolute Neutrophil Count 5.2 X10^3/uL (2.0-7.7); Lymphocyte % 5.2 % (19-41); Mean Platelet Vol. 9.3 fl (6.2-12.0); Monocyte# 0.27 X10^3/uL; Monocyte% 4.7 % (0-10); Neutrophil # 5.19 X10^3/uL (2.7-7.7); Neutrophil % 89.8 % (47-70); Platelet Count 132 K/mm3 (150-450); RBC Distribution Width SD 42.1 fl (35.1-43.9)
[2019-04-02 04:32] LABS: Differential Indicated SCAN CRITERIA MET; POSITIVE COUNT NO; POSITIVE DIFFERENTIAL YES; POSITIVE MORPHOLOGY YES
[2019-04-02 04:39] LABS: Phosphorus 1.7 mg/dL (2.5-4.9)
[2019-04-02 04:43] LABS: Anion Gap 9 (5-15); BUN 9 mg/dL (7-18); BUN/Creat Ratio 16.8 RATIO (10-20); Calcium,Total 7.3 mg/dL (8.5-10.1); Chloride 115 mmol/L (98-107); Creatinine, Serum 0.54 mg/dL (0.55-1.02); EST Glomerular Filtration Rate 130 mL/min (>60); Est Glom Filt Rate - Afr Amer 157 mL/min (>60); Estimated Creatinine Clearance 126.59 ml/min; Glucose 126 mg/dL (74-106); Magnesium 2.5 mg/dL (1.6-2.6); Potassium 3.8 mmol/L (3.5-5.1); Sodium Level 145 mmol/L (136-145)
[2019-04-02 04:53] LABS: Differential Comment SCANNED
--- NOTE | 2019-04-02 06:46 | PCM.CON.CC ---
Problem List (1) Perforated diverticulum of large intestine Status: Acute (2) Obesity Status: Chronic Qualifiers: Obesity type: due to excess calories Obesity classification: adult class 2 (BMI 35 - 39.9) Body mass index: BMI 36.0-36.9 (3) Severe sepsis Status: Acute Reason for Consult Date of Consultation: 04/02/19 Reason for Consultation: Hypotension History of Present Illness: The patient is a 48 year old F, with no reported past medical history, who presented to [facility] on 03/31/2019 secondary to abdominal pain in the left lower quadrant to continue to get worse. Patient had reported subjective fevers and chills, but denied any nausea or vomiting. Patient had had some recent constipation, but stated this has improved. Patient does report a previous umbilical hernia repair, but otherwise had no surgical history. On presentation to the ER, patient was hemodynamically stable with a blood pressure 107/62 and 96% on room air. There was some tenderness noted of the abdomen, but no guarding or rebound. Patient did have a leukocytosis and CT scan of the abdomen and pelvis revealed acute diverticulitis of the distal left colon with pockets of extraluminal gas without focal abscess. Patient was admitted to the floor for further evaluation Yesterday morning, patient was noted to have worsening of pain. Given patient's clinical condition, patient was taken urgently to surgery for diagnostic laparoscopy. During the case, patient was noted to have hypotension requiring pressor therapy. Patient did have an open left hemicolectomy with Marie's procedure and mobilization of the splenic flexure. Patient was placed empirically on Zosyn therapy secondary to significant abdominal fluid noted. Patient did receive approximately 3 L of fluid during the surgical procedure. Given patient's hypotension, patient was admitted to the intensive care unit overnight for observation. Review of systems otherwise negative x10 systems. Past Medical History Past Medical History (Chronic Problems): Chronic Problems Obesity (Chronic) Allergies No Known Allergies Allergy (Verified 03/31/19 12:21) Home Medications: Ambulatory Orders Medication Instructions Recorded NK 03/31/19 Surgical History: - - Umbilical hernia repair with mesh 2 years ago at [facility] Psychiatric History: No pertinent psych hx REGISTERED NURSE SURGICAL SERVICES History: No pertinent REGISTERED NURSE SURGICAL SERVICES history Lives: With Family Smoking Status: Never smoker Alcohol: None Drugs: None - *Family History Maternal History Items: Cancer - Kidney Review of Systems Comment: See HPI Patient Problems: Active and Suspected Problems Perforated diverticulum of large intestine (Acute) Severe sepsis (Acute) Subjective: This morning, patient reports pain is well controlled. Patient does not report any gas movement from the bowel. Nursing had reported significant saturation of the drainage associated with change in body position, but no blood has been noted. Patient has had approximately 120 cc of drainage from the CHRISTINA drain that has remained serosanguineous. Patient was weaned to room air. No pressors were required overnight. - Physical Exam General: Alert, Oriented x3, Cooperative, No apparent distress, Well developed, Well nourished, - - No conversational dyspnea noted. HEENT: Atraumatic, PERRLA, EOMI, Normocephalic, - - No scleral icterus or injection noted. Oral: Moist Mucosa, No Gingival or Mucosal Lesions/ Ulcerations Neck: Supple, No JVD, No Nodes, Trachea Midline Lungs: No rhonchi, No wheeze, No rales, Diminished, - - Symmetric expansion. No dullness to percussion. Cardiovascular: Regular rate, Regular Rhythm, Normal S1, Normal S2, No murmurs, No rub noted, No Gallop Abdomen: Soft, Bowel Sounds Not Present, Distended - Slightly, - - Incisional dressing is saturated with serosanguineous fluid. No bruising appreciated. Approximately 30 cc of serosanguineous fluid noted from CHRISTINA drain. No guarding. Extremities: No clubbing, No cyanosis, No edema Skin: No rashes, No breakdown, Incision Musculoskeletal: No Tenderness to Palpation of Joints or Extremities Lymphatic: No Cervical, Supraclavicular, or Inguinal Adenopathy Neurological: Cranial nerves II-XII grossly intact, Neuro grossly intact, Motor Exam 5/5 strength throughout Psych/Mental Status: Alert and oriented to time, place, person, mood and affect Vital Signs Temp Pulse Resp BP Pulse Ox 36.7 C 90 20 H 98/58 L 92 04/02/19 04:00 04/02/19 06:00 04/02/19 06:00 04/02/19 06:00 04/02/19 06:00 Oxygen Flow Rate (L/min) 1 Oxygen Delivery Method Room Air Weight: 104.6 kg Body Mass Index (BMI) 33.8 Intake and Output for Last 24 Hours 03/31/19 04/01/19 04/02/19 23:59 23:59 23:59 Intake Total 7283.6 / 7283.6 1132.8 / 1132.8 Output Total 930 / 930 580 / 580 Balance 6353.6 / 6353.6 552.8 / 552.8 Laboratory Tests Past 24 Hrs 04/01/19 04/01/19 04/02/19 05:40 18:55 04:15 WBC 5.8 RBC 3.62 L Hgb 11.1 L Hct 32.9 L MCV 90.9 MCH 30.7 MCHC 33.7 RDW 13.0 RDW Differential 42.1 Plt Count 132 L MPV 9.3 Immature Gran % (Auto) 0.300 Neut % (Auto) 89.8 H Lymph % (Auto) 5.2 L [place] % (Auto) 4.7 Eos % (Auto) 0.0 Baso % (Auto) 0.0 Absolute Neuts (auto) 5.2 Absolute Lymphs (auto) 0.30 L Total Counted Not Reportable Differential Comment SCANNED SCANNED Platelet Estimate ADEQUATE Sodium 142 Potassium 3.8 Chloride 115 H Carbon Dioxide 18.0 L Anion Gap 9 BUN 9 Creatinine 0.59 Estim Creat Clear Calc 115.86 Est GFR (MDRD) Af Amer 140 Est GFR (MDRD) Non-Af 116 BUN/Creatinine Ratio 15.2 Glucose 99 Calcium 7.0 L Phosphorus Magnesium 1.2 L 04/02/19 04/02/19 04:15 04:15 WBC RBC Hgb Hct MCV MCH MCHC RDW RDW Differential Plt Count MPV Immature Gran % (Auto) Neut % (Auto) Lymph % (Auto) [place] % (Auto) Eos % (Auto) Baso % (Auto) Absolute Neuts (auto) Absolute Lymphs (auto) Total Counted Differential Comment Platelet Estimate Sodium 145 Potassium 3.8 Chloride 115 H Carbon Dioxide 21.0 Anion Gap 9 BUN 9 Creatinine 0.54 L Estim Creat Clear Calc 126.59 Est GFR (MDRD) Af Amer 157 Est GFR (MDRD) Non-Af 130 BUN/Creatinine Ratio 16.8 Glucose 126 H Calcium 7.3 L Phosphorus 1.7 L Magnesium 2.5 Assessment/Plan Active and Suspected Problems Perforated diverticulum of large intestine (Acute) Severe sepsis (Acute) RECOMMENDATIONS: 1. Continue empiric antibiotic therapy 2. Increase activity as tolerated 3. Initiation of p.o. per surgery recommendations 4. Okay to leave the intensive care unit from my perspective IMPRESSIONS: 1. Severe sepsis secondary to perforated diverticulitis left colon Patient with significant serosanguineous drainage noted of the abdomen. Patient has responded well to surgical intervention. Blood pressures are relatively marginal, but this is likely a function of baseline decreased blood pressure. No pressors have been required. Patient is not requiring any fluid boluses. Patient's leukocytosis has responded appropriately. Clinical suspicion for pressor requirement secondary to anesthesia in the setting of severe sepsis. 2. Acute diverticulitis with perforation status post left colectomy postop day #1 Surgery is currently following. Patient tolerated the procedure well. Pain is well controlled at this time. Will increase activity as tolerated. Patient does have some serosanguineous drainage, but will defer to surgery on inspection of the incision. 3. Obesity/history of umbilical hernia repair Complicates care, management, recovery and prognosis. Code Visit Inpatient E&M: 47540 Init Hosp L3
--- NOTE | 2019-04-02 06:50 | CON.PCM_ITS ---
Problem List (1) Perforated diverticulum of large intestine Status: Acute (2) Obesity Status: Chronic Qualifiers: Obesity type: due to excess calories Obesity classification: adult class 2 (BMI 35 - 39.9) Body mass index: BMI 36.0-36.9 (3) Severe sepsis Status: Acute Reason for Consult Date of Consultation: 04/02/19 Reason for Consultation: Hypotension History of Present Illness: The patient is a 48 year old F, with no reported past medical history, who pre sented to [facility] on 03/31/2019 secondary to abdominal pain in the left lower quadrant to continue to get worse. Patient had reported subjective fevers and chills, but denied any nausea or vomiting. Patient had had some recent constipation, but stated this has improved. Patient does report a previous umbilical hernia repair, but otherwise had no surgical history. On presentation to the ER, patient was hemodynamically stable with a blood pressure 107/62 and 96% on room air. There was some tenderness noted of the abdomen, but no guarding or rebound. Patient did have a leukocytosis and CT scan of the abdomen and pelvis revealed acute diverticulitis of the distal left colon with pockets of extraluminal gas without focal abscess. Patient was admitted to the floor for further evaluation Yesterday morning, patient was noted to have worsening of pain. Given patient's clinical condition, patient was taken urgently to surgery for diagnostic laparoscopy. During the case, patient was noted to have hypotension requiring pressor therapy. Patient did have an open left hemicolectomy with Marie's procedure and mobilization of the splenic flexure. Patient was placed em pirically on Zosyn therapy secondary to significant abdominal fluid noted. Patient did receive approximately 3 L of fluid during the surgical procedure. Given patient's hypotension, patient was admitted to the intensive care unit overnight for observation. Review of systems otherwise negative x10 systems. 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 Patient does not report any gas movement from the bowel. Nursing had reported significant saturation of the drainage associated with change in body position, but no blood has been noted. Patient has had approximately 120 cc of drainage from the CHRISTINA drain that has remained serosanguineous. Patient was weaned to room air. No pressors were required overnight. - Physical Exam General: Alert, Oriented x3, Cooperative, No apparent distress, Well developed, Well nourished, - - No conversational dyspnea noted. HEENT: Atraumatic, PERRLA, EOMI, Normocephalic, - - No scleral icterus or injection noted. Oral: Moist Mucosa, No Gingival or Mucosal Lesions/ Ulcerations Neck: Supple, No JVD, No Nodes, Trachea Midline Lungs: No rhonchi, No wheeze, No rales, Diminished, - - Symmetric expansion. No dullness to percussion. Cardiovascular: Regular rate, Regular Rhythm, Normal S1, Normal S2, No murmurs, No rub noted, No Gallop Abdomen: Soft, Bowel Sounds Not Present, Distended - Slightly, - - Incisional dressing is saturated with serosanguineous fluid. No bruising appreciated. Approximately 30 cc of serosanguineous fluid noted from CHRISTINA drain. No guarding. Extremities: No clubbing, No cyanosis, No edema Skin: No rashes, No breakdown, Incision Musculoskeletal: No Tenderness to Palpation of Joints or Extremities Lymphatic: No Cervical, Supraclavicular, or Inguinal Adenopathy Neurological: Cranial nerves II-XII grossly intact, Neuro grossly intact, Motor Exam 5/5 strength throughout Psych/Mental Status: Alert and oriented to time, place, person, mood and affect Vital Signs Temp Pulse Resp BP Pulse Ox 36.7 C 90 20 H 98/58 L 92 04/02/19 04:00 04/02/19 06:00 04/02/19 06:00 04/02/19 06:00 04/02/19 06:00 Oxygen Flow Rate (L/min) 1 Oxygen Delivery Method Room Air Weight: 104.6 kg Body Mass Index (BMI) 33.8 Intake and Output for Last 24 Hours 03/31/19 04/01/19 04/02/19 23:59 23:59 23:59 Intake Total 7283.6 / 7283.6 1132.8 / 1132.8 Output Total 930 / 930 580 / 580 Balance 6353.6 / 6353.6 552.8 / 552.8 Laboratory Tests Past 24 Hrs 04/01/19 04/01/19 04/02/19 05:40 18:55 04:15 WBC 5.8 RBC 3.62 L Hgb 11.1 L Hct 32.9 L MCV 90.9 MCH 30.7 MCHC 33.7 RDW 13.0 RDW Differential 42.1 Plt Count 132 L MPV 9.3 Immature Gran % (Auto) 0.300 Neut % (Auto) 89.8 H Lymph % (Auto) 5.2 L [place] % (Auto) 4.7 Eos % (Auto) 0.0 Baso % (Auto) 0.0 Absolute Neuts (auto) 5.2 Absolute Lymphs (auto) 0.30 L Total Counted Not Reportable Differential Comment SCANNED SCANNED Platelet Estimate ADEQUATE Sodium 142 Potassium 3.8 Chloride 115 H Carbon Dioxide 18.0 L Anion Gap 9 BUN 9 Creatinine 0.59 Estim Creat Clear Calc 115.86 Est GFR (MDRD) Af Amer 140 Est GFR (MDRD) Non-Af 116 BUN/Creatinine Ratio 15.2 Glucose 99 Calcium 7.0 L Phosphorus Magnesium 1.2 L 04/02/19 04/02/19 04:15 04:15 WBC RBC Hgb Hct MCV MCH MCHC RDW RDW Differential Plt Count MPV Immature Gran % (Auto) Neut % (Auto) Lymph % (Auto) [place] % (Auto) Eos % (Auto) Baso % (Auto) Absolute Neuts (auto) Absolute Lymphs (auto) Total Counted Differential Comment Platelet Estimate Sodium 145 Potassium 3.8 Chloride 115 H Carbon Dioxide 21.0 Anion Gap 9 BUN 9 Creatinine 0.54 L Estim Creat Clear Calc 126.59 Est GFR (MDRD) Af Amer 157 Est GFR (MDRD) Non-Af 130 BUN/Creatinine Ratio 16.8 Glucose 126 H Calcium 7.3 L Phosphorus 1.7 L Magnesium 2.5 Assessment/Plan Active and Suspected Problems Perforated diverticulum of large intestine (Acute) Severe sepsis (Acute) RECOMMENDATIONS: 1. Continue empiric antibiotic therapy 2. Increase activity as tolerated 3. Initiation of p.o. per surgery recommendations 4. Okay to leave the intensive care unit from my perspective IMPRESSIONS: 1. Severe sepsis secondary to perforated diverticulitis left colon Patient with significant serosanguineous drainage noted of the abdomen. Patient has responded well to surgical intervention. Blood pressures are relatively marginal, but this is likely a function of baseline decreased blood pressure. No pressors have been required. Patient is not requiring any fluid boluses. Patient's leukocytosis has responded appropriately. Clinical suspicion for pressor requirement secondary to anesthesia in the setting of victoriano re sepsis. 2. Acute diverticulitis with perforation status post left colectomy postop day #1 Surgery is currently following. Patient tolerated the procedure well. Pain is well controlled at this time. Will increase activity as tolerated. Patient does have some serosanguineous drainage, but will defer to surgery on inspection of the incision. 3. Obesity/history of umbilical hernia repair Complicates care, management, recovery and prognosis. Code Visit Inpatient E&M: 11885 Init Hosp L3
--- NOTE | 2019-04-02 07:34 | PCM.PN.SRG ---
Patient Problems: Active and Suspected Problems Perforated diverticulum of large intestine (Acute) Severe sepsis (Acute) Subjective: Patient's pain is controlled with fentanyl due to the patient's low blood pressure which may be lower at baseline as well. Patient did not require any pressors overnight. Patient did have good urine output this morning Gimenez for I's and O's, no flatus in colostomy bag - Physical Exam General: Alert, Oriented x3, Cooperative, No apparent distress HEENT: - - NG in place minimal output Lungs: Normal air movement Cardiovascular: Regular rate Abdomen: Soft, Distended - Mild, Obese, Tender - Near midline incision, closed with cezar and saline soaked mert x5, colostomy mildly congested, no gas in bag only small amount of bloody fluid, - - CHRISTINA serosaguineous Extremities: No clubbing, No cyanosis Neurological: Cranial nerves II-XII grossly intact Psych/Mental Status: Normal Affect Vital Signs Temp Pulse Resp BP Pulse Ox 98 F 84 20 H 98/62 98 04/02/19 08:00 04/02/19 08:00 04/02/19 08:00 04/02/19 08:00 04/02/19 08:00 Oxygen Flow Rate (L/min) 1 Oxygen Delivery Method Room Air Weight: 230 lb 9.656 oz Body Mass Index (BMI) 33.8 Intake and Output for Last 24 Hours 03/31/19 04/01/19 04/02/19 23:59 23:59 23:59 Intake Total 7283.6 / 7283.6 1132.8 / 1132.8 Output Total 930 / 930 650 / 650 Balance 6353.6 / 6353.6 482.8 / 482.8 Microbiology Past 72 Hours 04/01/19 15:29 Gram Stain - Final Fluid - Peritoneal Laboratory Tests Past 24 Hrs 04/01/19 04/02/19 04/02/19 18:55 04:15 04:15 WBC 5.8 RBC 3.62 L Hgb 11.1 L Hct 32.9 L MCV 90.9 MCH 30.7 MCHC 33.7 RDW 13.0 RDW Differential 42.1 Plt Count 132 L MPV 9.3 Immature Gran % (Auto) 0.300 Neut % (Auto) 89.8 H Lymph % (Auto) 5.2 L [place] % (Auto) 4.7 Eos % (Auto) 0.0 Baso % (Auto) 0.0 Absolute Neuts (auto) 5.2 Absolute Lymphs (auto) 0.30 L Total Counted Not Reportable Differential Comment SCANNED Sodium 142 145 Potassium 3.8 3.8 Chloride 115 H 115 H Carbon Dioxide 18.0 L 21.0 Anion Gap 9 9 BUN 9 9 Creatinine 0.59 0.54 L Estim Creat Clear Calc 115.86 126.59 Est GFR (MDRD) Af Amer 140 157 Est GFR (MDRD) Non-Af 116 130 BUN/Creatinine Ratio 15.2 16.8 Glucose 99 126 H Calcium 7.0 L 7.3 L Phosphorus Magnesium 1.2 L 2.5 04/02/19 04:15 WBC RBC Hgb Hct MCV MCH MCHC RDW RDW Differential Plt Count MPV Immature Gran % (Auto) Neut % (Auto) Lymph % (Auto) [place] % (Auto) Eos % (Auto) Baso % (Auto) Absolute Neuts (auto) Absolute Lymphs (auto) Total Counted Differential Comment Sodium Potassium Chloride Carbon Dioxide Anion Gap BUN Creatinine Estim Creat Clear Calc Est GFR (MDRD) Af Amer Est GFR (MDRD) Non-Af BUN/Creatinine Ratio Glucose Calcium Phosphorus 1.7 L Magnesium Medical Necessity - Tobacco Use Smoking Status: Never smoker Assessment/Plan All Active Problems Perforated diverticulum of large intestine (Acute) Severe sepsis (Acute) 48-year-old female with perforated sigmoid diverticulitis/sepsis, postop day 1 left hemicolectomy, Marie's procedure 1. Continue NG/n.p.o./IV fluids until bowel function, continue CHRISTINA to bulb suction serosanguineous 2. Continue Zosyn IV antibiotics 3. Okay to move to [facility] 4. continue pain control patient may need IV fentanyl due to her normally lower baseline blood pressure 5. Gimenez keep for i/os may remove later today if continues to have good urine output/OOB to chair 6. Ambulate/up into the chair 7. Hypophosphatemia?replace Meseret Gavin M.D. Pager: [phone] [facility] [address] [place] [address], Outpatient Pavilion, [address] [place] [address] Office: [phone]
[2019-04-02] MEDS: Morphine 2 MG/ML Syringe IV ×2 (08:25→19:00)
--- NOTE | 2019-04-02 08:37 | PN.SURG_ITS ---
Patient Problems: Active and Suspected Problems Perforated diverticulum of large intestine (Acute) Severe sepsis (Acute) Subjective: Patient's pain is controlled with fentanyl due to the patient's low blood pressure which may be lower at baseline as well. Patient did not require any pressors overnight. Patient did have good urine output this morning Gimenez for I's and O's, no flatus in colostomy bag - Physical Exam General: Alert, Oriented x3, Cooperative, No apparent distress HEENT: - - NG in place minimal output Lungs: Normal air movement Cardiovascular: Regular rate Abdomen: Soft, Distended - Mild, Obese, Tender - Near midline incision, closed with cezar and saline soaked mert x5, colostomy mildly congested, no gas in bag only small amount of bloody fluid, - - CHRISTINA serosaguineous Extremities: No clubbing, No cyanosis Neurological: Cranial nerves II-XII grossly intact Psych/Mental Status: Normal Affect Vital Signs Temp Pulse Resp BP Pulse Ox 98 F 84 20 H 98/62 98 04/02/19 08:00 04/02/19 08:00 04/02/19 08:00 04/02/19 08:00 04/02/19 08:00 Oxygen Flow Rate (L/min) 1 Oxygen Delivery Method Room Air Weight: 230 lb 9.656 oz Body Mass Index (BMI) 33.8 Intake and Output for Last 24 Hours 03/31/19 04/01/19 04/02/19 23:59 23:59 23:59 Intake Total 7283.6 / 7283.6 1132.8 / 1132.8 Output Total 930 / 930 650 / 650 Balance 6353.6 / 6353.6 482.8 / 482.8 Microbiology Past 72 Hours 04/01/19 15:29 Gram Stain - Final Fluid - Peritoneal Laboratory Tests Past 24 Hrs 04/01/19 04/02/19 04/02/19 18:55 04:15 04:15 WBC 5.8 RBC 3.62 L Hgb 11.1 L Hct 32.9 L MCV 90.9 MCH 30.7 MCHC 33.7 RDW 13.0 RDW Differential 42.1 Plt Count 132 L MPV 9.3 Immature Gran % (Auto) 0.300 Neut % (Auto) 89.8 H Lymph % (Auto) 5.2 L [place] % (Auto) 4.7 Eos % (Auto) 0.0 Baso % (Auto) 0.0 Absolute Neuts (auto) 5.2 Absolute Lymphs (auto) 0.30 L Total Counted Not Reportable Differential Comment SCANNED Sodium 142 145 Potassium 3.8 3.8 Chloride 115 H 115 H Carbon Dioxide 18.0 L 21.0 Anion Gap 9 9 BUN 9 9 Creatinine 0.59 0.54 L Estim Creat Clear Calc 115.86 126.59 Est GFR (MDRD) Af Amer 140 157 Est GFR (MDRD) Non-Af 116 130 BUN/Creatinine Ratio 15.2 16.8 Glucose 99 126 H Calcium 7.0 L 7.3 L Phosphorus Magnesium 1.2 L 2.5 04/02/19 04:15 WBC RBC Hgb Hct MCV MCH MCHC RDW RDW Differential Plt Count MPV Immature Gran % (Auto) Neut % (Auto) Lymph % (Auto) [place] % (Auto) Eos % (Auto) Baso % (Auto) Absolute Neuts (auto) Absolute Lymphs (auto) Total Counted Differential Comment Sodium Potassium Chloride Carbon Dioxide Anion Gap BUN Creatinine Estim Creat Clear Calc Est GFR (MDRD) Af Amer Est GFR (MDRD) Non-Af BUN/Creatinine Ratio Glucose Calcium Phosphorus 1.7 L Magnesium Medical Necessity - Tobacco Use Smoking Status: Never smoker Assessment/Plan All Active Problems Perforated diverticulum of large intestine (Acute) Severe sepsis (Acute) 48-year-old female with perforated sigmoid diverticulitis/sepsis, postop day 1 left hemicolectomy, Marie's procedure 1. Continue NG/n.p.o./IV fluids until bowel function, continue CHRISTINA to bulb suction serosanguineous 2. Continue Zosyn IV antibiotics 3. Okay to move to [facility] 4. continue pain control patient may need IV fentanyl due to her normally lower baseline blood pressure 5. Gimenez keep for i/os may remove later today if continues to have good urine output/OOB to chair 6. Ambulate/up into the chair 7. Hypophosphatemia?replace Meseret Gavin M.D. Pager: [phone] [facility] [address] [place] [address], Outpatient Pavilion, [address] [place] [address] Office: [phone]
--- NOTE | 2019-04-02 09:45 | CASEMGMT ---
Addendum entered by Pravin Brown 04/02/19 14:14: Call received from Kanika @ [facility]. She states Dr Gavin agreeable to following pt after discharge for HHC and they are able to accept pt for HHC: [facility]. Pt made aware [facility] able to provide HHC services. She was also made aware that Dr Siegel is agreeable to taking her as a new pt and pt advised to call Dr Siegel's office @ discharge to make an appt with him. She voices understanding. Call placed to Dr Siegel's office and message left to inform them that Dr Gavin will follow pt for HHC services and also that pt plans to call them to make an appt. Original Note: Addendum entered by Pravin Brown 04/02/19 12:13: Call received from Dr Mark Siegel's office. Dr Siegel is agreeable to seeing pt but wants to see her 1st before being agreeable to following for HHC since it has been so long since she was seen last in his office. Call placed to Kanika @ [facility] and she was made aware. Kanika states she will contact Dr Gavin to inquire if she would be agreeable to following pt for HHC once pt is discharged. Original Note: Addendum entered by Pravin Brown 04/02/19 10:22: Call placed to [facility] and spoke to Kanika. Referral made for [facility]. Kanika made aware pt does not have PCP but awaiting call from Dr Mark Siegel to see if he is able to accept pt and follow for HHC. Original Note: RN CM MANAGEMENT AND BUDGET ANALYST CM to room to meet with patient for initial transition planning/care coordination assessment. RN CM introduced self and role at [facility]. Pt voices understanding and consents to assessment at this time. Pt sitting up in recliner chair in no distress at this time. Pt is A/O at this time and answers all questions appropriately. Care providers, pharmacy, and demographics verified/updated at this time. PCP: No PCP. States saw Dr Mark Siegel a couple yrs ago but is not current with him, but that is who she would be interested in following up with. Call placed to Dr Siegel's office @ [phone] and message left to see if he is accepting new pt's and able to follow pt for HHC. Awaiting return call. Specialists: none Preferred Pharmacy: [facility]. Insurance: [employer] Prescription Benefit: [employer] Living Will/HPOA: Does not have either. Is interested in talking with TIMI to complete paperwork. TIMI Salomon, made aware. LNOK: Father, 7 siblings. Living Arrangements: Lives with father, 4 brothers, and 2 sisters. Transportation: Hires van transport. DME: Denies using any DME. Will need Colostomy supplies @ discharge. Marimar Lainez, wound/ostomy nurse, to meet with pt today. HHC/SNF: No history of either. Would like [facility] for colostomy care/teaching. No preference of HHC agency. Pt wishes to return home and states has no concerns with going home at time of discharge. States CM to follow for any discharge planning/needs. Pt voices no further concerns/needs at this time. Advised pt to ask for CM if any further questions/concerns/needs arise. Voices understanding. PLAN: Home w/HHC: [facility] for colostomy teaching/care. Ashish DEAN RN CM
--- NOTE | 2019-04-02 10:42 | NURSING ---
stoma to the left upper quadrant is dark red in color. there is some bowel sweat noted to the appliance. no flatus noted at this time. discussed ostomy care, supplies, home health, etc. with the patient and family. they are requesting home health for a while at home and want to get the ostomy supplies through mail order. will order through [employer] at discharge. discussed with ARIN Costello. plan to change appliance Monday or with patient and family. pt denies further questions or needs at this time.
--- NOTE | 2019-04-02 11:16 | NURSING ---
wound photo: abdomen
[2019-04-02] MEDS: Ketorolac 15 MG/ML Vial IV (12:54)
[2019-04-02] MEDS: Enoxaparin 40 MG/0.4 ML Syringe SC (13:12)
--- NOTE | 2019-04-02 14:28 | CASEMGMT ---
Per RN CM patient wanted advance directives. SW met with patient, introduced self as well as role at [facility]. SW explained advance directives to patient. She asked SW to leave documents with her. SW explained if she would like to complete the documents while in the hospital she just needs to ask for Social Work. SW also told her about the outpatient service to complete documents. Umm DICK MSW
[2019-04-02] MEDS: 0.9% NaCl Peripheral Flush Adult/Peds IV (23:13)
[2019-04-03] VITALS (8 sets, daily range): BP systolic 109–135; BP diastolic 71–91; PULSE 69–83; RESP 16–18; TEMP 36.8–37.5; O2SAT 94–99
[2019-04-03] MEDS: Lactated Ringers 1,000 ML 100 ML IV ×2 (03:14→21:37)
[2019-04-03] MEDS: Ketorolac 15 MG/ML Vial IV ×2 (03:23→18:11)
[2019-04-03 06:00] LABS: Absolute Lymphocyte Count 0.89 X10^3/ul (0.83-4.51); Absolute Neutrophil Count 4.6 X10^3/uL (2.0-7.7); Hematocrit 29.6 % (37-47); Lymphocyte # 0.89 X10^3/ul (4.0); Mean Corp Hgb Conc 33.8 g/gl (32-36); Mean Corpuscular Hgb 30.5 pg (27.0-32.0); Mean Corpuscular Volume 90.2 fL (81-99); Monocyte# 0.48 X10^3/uL; Monocyte% 8.1 % (0-10); Neutrophil # 4.57 X10^3/uL (2.7-7.7); Neutrophil % 76.7 % (47-70); Platelet Count 156 K/mm3 (150-450); RBC Distribution Width CV 13.1 % (11.6-14.6); RBC Distribution Width SD 43.5 fl (35.1-43.9); Red Blood Count 3.28 M/mm3 (4.2-5.4)
[2019-04-03 06:04] LABS: POSITIVE COUNT NO; POSITIVE DIFFERENTIAL NO; POSITIVE MORPHOLOGY NO
--- NOTE | 2019-04-03 06:17 | PCA ---
04/03/19 0618 Discussed weight change with Mary CRISTINA
[2019-04-03 06:24] LABS: AST(SGOT) 16 U/L (15-37); Alanine Aminotransfer ALT/SGPT 13 U/L (13-56); Albumin, Serum 1.8 g/dL (3.2-5.0); Alkaline Phosphatase 34 U/L (45-117); Anion Gap 7 (5-15); BUN 13 mg/dL (7-18); Bilirubin, Direct 0.21 mg/dL (0.00-0.30); Calcium,Total 7.8 mg/dL (8.5-10.1); Chloride 114 mmol/L (98-107); Creatinine, Serum 0.43 mg/dL (0.55-1.02); EST Glomerular Filtration Rate 166 mL/min (>60); Est Glom Filt Rate - Afr Amer 201 mL/min (>60); Estimated Creatinine Clearance 158.97 ml/min; Globulin 3.4 g/dL (2.2-4.2); Glucose 93 mg/dL (74-106); Phosphorus 1.3 mg/dL (2.5-4.9); Protein, Total 5.2 g/dL (6.4-8.2); Sodium Level 144 mmol/L (136-145)
--- NOTE | 2019-04-03 07:40 | PCM.PN.SRG ---
Patient Problems: Active and Suspected Problems Perforated diverticulum of large intestine (Acute) Severe sepsis (Acute) Subjective: Patient's pain is controlled with pain meds. She was up to the chair twice yesterday did not walk in the halls but has been walking to the restroom. No flatus in colostomy bag - Physical Exam General: Alert, Oriented x3, Cooperative, No apparent distress HEENT: Atraumatic, - - NG in place Cardiovascular: Regular rate Abdomen: Soft, Distended - Mild to moderate, Obese, Tender - Near incision clean dry and intact, no peritoneal signs, - - Incision closed with cezar and 5 saline soaks mert, CHRISTINA serosanguineous Extremities: No clubbing, No cyanosis Neurological: Cranial nerves II-XII grossly intact Psych/Mental Status: Normal Affect Vital Signs Temp Pulse Resp BP Pulse Ox 98.2 F 83 16 119/72 94 04/03/19 03:17 04/03/19 03:17 04/03/19 03:17 04/03/19 03:17 04/03/19 03:17 Oxygen Flow Rate (L/min) 1 Oxygen Delivery Method Room Air Weight: 233 lb 7.512 oz Body Mass Index (BMI) 33.8 Intake and Output for Last 24 Hours 04/01/19 04/02/19 04/03/19 23:59 23:59 23:59 Intake Total 7283.6 / 7283.6 3906.8 / 3906.8 855 / 855 Output Total 930 / 930 1240 / 1240 30 / 30 Balance 6353.6 / 6353.6 2666.8 / 2666.8 825 / 825 Microbiology Past 72 Hours 04/01/19 15:29 Gram Stain - Final Fluid - Peritoneal Body Fluid Culture - Preliminary Gram negative phill Laboratory Tests Past 24 Hrs 04/03/19 04/03/19 05:30 05:30 WBC 6.0 RBC 3.28 L Hgb 10.0 L Hct 29.6 L MCV 90.2 MCH 30.5 MCHC 33.8 RDW 13.1 RDW Differential 43.5 Plt Count 156 MPV 9.0 Immature Gran % (Auto) 0.200 Neut % (Auto) 76.7 H Lymph % (Auto) 15.0 L [place] % (Auto) 8.1 Eos % (Auto) 0.0 Baso % (Auto) 0.0 Absolute Neuts (auto) 4.6 Absolute Lymphs (auto) 0.89 Total Counted Not Reportable Sodium 144 Potassium 4.0 Chloride 114 H Carbon Dioxide 23.0 Anion Gap 7 BUN 13 Creatinine 0.43 L Estim Creat Clear Calc 158.97 Est GFR (MDRD) Af Amer 201 Est GFR (MDRD) Non-Af 166 BUN/Creatinine Ratio 30.0 H Glucose 93 Calcium 7.8 L Phosphorus 1.3 L Total Bilirubin 0.80 Direct Bilirubin 0.21 AST 16 ALT 13 Alkaline Phosphatase 34 L Total Protein 5.2 L Albumin 1.8 L Globulin 3.4 Medical Necessity - Tobacco Use Smoking Status: Never smoker Assessment/Plan All Active Problems Perforated diverticulum of large intestine (Acute) Severe sepsis (Acute) 48-year-old female with perforated sigmoid diverticulitis/sepsis, postop day 2 left hemicolectomy, Marie's procedure 1. Continue NG/n.p.o./IV fluids until bowel function, continue CHRISTINA to bulb suction serous 2. Continue Zosyn IV antibiotics, normal white blood cell count with a decreasing left shift 3. continue pain control 4. Ambulate/up into the chair and ambulate halls 5. Hypophosphatemia?replace Meseret Gavin M.D. Pager: [phone] [facility] [address] [place] [address], [facility], [address] [place] [address] Office: [phone]
--- NOTE | 2019-04-03 07:43 | PN.SURG_ITS ---
Patient Problems: Active and Suspected Problems Perforated diverticulum of large intestine (Acute) Severe sepsis (Acute) Subjective: Patient's pain is controlled with pain meds. She was up to the chair twice yesterday did not walk in the halls but has been walking to the restroom. No flatus in colostomy bag - Physical Exam General: Alert, Oriented x3, Cooperative, No apparent distress HEENT: Atraumatic, - - NG in place Cardiovascular: Regular rate Abdomen: Soft, Distended - Mild to moderate, Obese, Tender - Near incision clean dry and intact, no peritoneal signs, - - Incision closed with cezar and 5 saline soaks mert, CHRISTINA serosanguineous Extremities: No clubbing, No cyanosis Neurological: Cranial nerves II-XII grossly intact Psych/Mental Status: Normal Affect Vital Signs Temp Pulse Resp BP Pulse Ox 98.2 F 83 16 119/72 94 04/03/19 03:17 04/03/19 03:17 04/03/19 03:17 04/03/19 03:17 04/03/19 03:17 Oxygen Flow Rate (L/min) 1 Oxygen Delivery Method Room Air Weight: 233 lb 7.512 oz Body Mass Index (BMI) 33.8 Intake and Output for Last 24 Hours 04/01/19 04/02/19 04/03/19 23:59 23:59 23:59 Intake Total 7283.6 / 7283.6 3906.8 / 3906.8 855 / 855 Output Total 930 / 930 1240 / 1240 30 / 30 Balance 6353.6 / 6353.6 2666.8 / 2666.8 825 / 825 Microbiology Past 72 Hours 04/01/19 15:29 Gram Stain - Final Fluid - Peritoneal Body Fluid Culture - Preliminary Gram negative phill Laboratory Tests Past 24 Hrs 04/03/19 04/03/19 05:30 05:30 WBC 6.0 RBC 3.28 L Hgb 10.0 L Hct 29.6 L MCV 90.2 MCH 30.5 MCHC 33.8 RDW 13.1 RDW Differential 43.5 Plt Count 156 MPV 9.0 Immature Gran % (Auto) 0.200 Neut % (Auto) 76.7 H Lymph % (Auto) 15.0 L [place] % (Auto) 8.1 Eos % (Auto) 0.0 Baso % (Auto) 0.0 Absolute Neuts (auto) 4.6 Absolute Lymphs (auto) 0.89 Total Counted Not Reportable Sodium 144 Potassium 4.0 Chloride 114 H Carbon Dioxide 23.0 Anion Gap 7 BUN 13 Creatinine 0.43 L Estim Creat Clear Calc 158.97 Est GFR (MDRD) Af Amer 201 Est GFR (MDRD) Non-Af 166 BUN/Creatinine Ratio 30.0 H Glucose 93 Calcium 7.8 L Phosphorus 1.3 L Total Bilirubin 0.80 Direct Bilirubin 0.21 AST 16 ALT 13 Alkaline Phosphatase 34 L Total Protein 5.2 L Albumin 1.8 L Globulin 3.4 Medical Necessity - Tobacco Use Smoking Status: Never smoker Assessment/Plan All Active Problems Perforated diverticulum of large intestine (Acute) Severe sepsis (Acute) 48-year-old female with perforated sigmoid diverticulitis/sepsis, postop day 2 left hemicolectomy, Marie's procedure 1. Continue NG/n.p.o./IV fluids until bowel function, continue CHRISTINA to bulb suction serous 2. Continue Zosyn IV antibiotics, normal white blood cell count with a decreasing left shift 3. continue pain control 4. Ambulate/up into the chair and ambulate halls 5. Hypophosphatemia?replace Meseret Gavin M.D. Pager: [phone] [facility] [address] [place] [address], [facility], [address] [place] [address] Office: [phone]
[2019-04-03] MEDS: Enoxaparin 40 MG/0.4 ML Syringe SC (08:47)
[2019-04-03] MEDS: 0.9% NaCl Peripheral Flush Adult/Peds IV ×3 (10:19→21:37)
--- NOTE | 2019-04-03 12:02 | NURSING ---
Removed colostomy appliance. there was no flatus noted in the appliance. stoma is well budded and dark pink. stoma measures approx 1 5/8 and is slightly oval in shape. stoma slightly edematous. peristomal skin is intact. educated patient and sister on appliance change. applied a 2 piece flat Cuddy appliance. pt will need cut to fit for at least 8 weeks since stoma size may change. placed Reed flange #[id number] and pouch #[id number] with a small amount of stoma paste. will send patient home with a few of these appliances as well as a script for home health care nurse for ostomy supplies. unsure of discharge plan at this time. pt has not passed flatus and still has NG tube in place. hoping to have another opportunity for more teaching with family, but if not Home Health will be continuing education with them. Colostomy booklet and step by step instruction on appliance change was given to patient and family.
--- NOTE | 2019-04-03 12:12 | NURSING ---
wound photo: midline surgical incision
--- NOTE | 2019-04-03 12:13 | NURSING ---
stoma photo: left upper abdomen
--- NOTE | 2019-04-03 13:42 | RAD_ITS ---
STUDY: X-RAY - ABDOMEN/PELVIS REASON FOR EXAM: Female, 48 years old. An NG tube placement. TECHNIQUE: Single AP view of the abdomen / pelvis. COMPARISON: None. FINDINGS: The tip of the nasogastric tube is in the body of the stomach. Small left pleural effusion with underlying infiltration and/or atelectasis. RAD/Abdomen Single View (Portable) IMPRESSION: The tip of the nasogastric tube is in the body of the stomach. Electronically Signed: Erik Story, at 14:14 EDT , Service support ,
[2019-04-03] MEDS: BENZOCAINE/MENTHOL 1 LOZENGE MUCOUS MEM (14:46)
[2019-04-04 03:34] VITALS: BP 114/68; PULSE 74; RESP 16; TEMP 36.9; O2SAT 96
[2019-04-04 05:40] LABS: Absolute Lymphocyte Count 1.24 X10^3/ul (0.83-4.51); Absolute Neutrophil Count 2.9 X10^3/uL (2.0-7.7); Eosinophil# 0.01 X10^3/uL; Eosinophils% 0.2 % (0-5); Hematocrit 29.4 % (37-47); Hemoglobin 9.8 g/dl (12.0-15.0); Lymphocyte # 1.24 X10^3/ul (4.0); Lymphocyte % 26.6 % (19-41); Mean Corp Hgb Conc 33.3 g/gl (32-36); Mean Corpuscular Hgb 30.4 pg (27.0-32.0); Mean Corpuscular Volume 91.3 fL (81-99); Mean Platelet Vol. 9.3 fl (6.2-12.0); Monocyte# 0.52 X10^3/uL; Monocyte% 11.1 % (0-10); Neutrophil # 2.88 X10^3/uL (2.7-7.7); Neutrophil % 61.7 % (47-70); Platelet Count 155 K/mm3 (150-450); RBC Distribution Width CV 12.8 % (11.6-14.6); RBC Distribution Width SD 42.3 fl (35.1-43.9); Red Blood Count 3.22 M/mm3 (4.2-5.4); White Blood Count 4.7 K/mm3 (4.4-11.0)
[2019-04-04 05:55] LABS: Anion Gap 8 (5-15); BUN 16 mg/dL (7-18); BUN/Creat Ratio 37.3 RATIO (10-20); Calcium,Total 7.7 mg/dL (8.5-10.1); Chloride 114 mmol/L (98-107); Creatinine, Serum 0.43 mg/dL (0.55-1.02); EST Glomerular Filtration Rate 168 mL/min (>60); Est Glom Filt Rate - Afr Amer 203 mL/min (>60); Estimated Creatinine Clearance 158.97 ml/min; Glucose 73 mg/dL (74-106); Phosphorus 2.3 mg/dL (2.5-4.9); Potassium 3.8 mmol/L (3.5-5.1); Sodium Level 145 mmol/L (136-145)
[2019-04-04 06:05] LABS: POSITIVE COUNT NO; POSITIVE DIFFERENTIAL NO; POSITIVE MORPHOLOGY NO
[2019-04-04] MEDS: Lactated Ringers 1,000 ML 100 ML IV (08:32)
[2019-04-04] MEDS: Enoxaparin 40 MG/0.4 ML Syringe SC (08:34)
--- NOTE | 2019-04-04 08:34 | PCM.PN.SRG ---
Patient Problems: Active and Suspected Problems Perforated diverticulum of large intestine (Acute) Severe sepsis (Acute) Subjective: Patient ambulating, pain controlled, saline mert were removed yesterday, still no flatus and colostomy bag - Physical Exam General: Alert, Oriented x3, Cooperative, No apparent distress Lungs: Normal air movement Cardiovascular: Regular rate Abdomen: Soft, Non-Distended, Obese, Tender - At incision, appropriate incision clean dry and intact with cezar, - - Colostomy pink, no flatus in bag, CHRISTINA serosanguineous?CHRISTINA removed at bedside. Extremities: No clubbing, No cyanosis, No edema Neurological: Cranial nerves II-XII grossly intact Psych/Mental Status: Normal Affect Vital Signs Temp Pulse Resp BP Pulse Ox 98.5 F 74 16 114/68 96 04/04/19 03:34 04/04/19 03:34 04/04/19 03:34 04/04/19 03:34 04/04/19 03:34 Oxygen Flow Rate (L/min) 1 Oxygen Delivery Method Room Air Weight: 232 lb 9.403 oz Body Mass Index (BMI) 33.8 Intake and Output for Last 24 Hours 04/02/19 04/03/19 04/04/19 23:59 23:59 23:59 Intake Total 3906.8 / 3906.8 1881 / 1881 1305 / 1305 Output Total 1240 / 1240 670 / 670 435 / 435 Balance 2666.8 / 2666.8 1211 / 1211 870 / 870 Microbiology Past 72 Hours 04/01/19 15:29 Gram Stain - Final Fluid - Peritoneal Body Fluid Culture - Final Escherichia coli Laboratory Tests Past 24 Hrs 04/04/19 04/04/19 05:25 05:25 WBC 4.7 RBC 3.22 L Hgb 9.8 L Hct 29.4 L MCV 91.3 MCH 30.4 MCHC 33.3 RDW 12.8 RDW Differential 42.3 Plt Count 155 MPV 9.3 Immature Gran % (Auto) 0.400 Neut % (Auto) 61.7 Lymph % (Auto) 26.6 [place] % (Auto) 11.1 H Eos % (Auto) 0.2 Baso % (Auto) 0.0 Absolute Neuts (auto) 2.9 Absolute Lymphs (auto) 1.24 Total Counted Not Reportable Sodium 145 Potassium 3.8 Chloride 114 H Carbon Dioxide 23.0 Anion Gap 8 BUN 16 Creatinine 0.43 L Estim Creat Clear Calc 158.97 Est GFR (MDRD) Af Amer 203 Est GFR (MDRD) Non-Af 168 BUN/Creatinine Ratio 37.3 H Glucose 73 L Calcium 7.7 L Phosphorus 2.3 L Medical Necessity - Tobacco Use Smoking Status: Never smoker Assessment/Plan All Active Problems Perforated diverticulum of large intestine (Acute) Severe sepsis (Acute) 48-year-old female with perforated sigmoid diverticulitis/sepsis, postop day 3 left hemicolectomy, Marie's procedure 1. Continue NG/n.p.o./IV fluids until bowel function, CHRISTINA removed at bedside 2. Continue Zosyn IV antibiotics plan to stop in a box after today 3. continue pain control 4. Ambulate/up into the chair and ambulate halls 5. I will not be here tomorrow, Dr. Garcia will be rounding tomorrow and the weekend. Meseret Gavin M.D. Pager: [phone] [facility] [address] [place] [address], [facility], [address] [place] [address] Office: [phone]
[2019-04-04] MEDS: Ketorolac 15 MG/ML Vial IV (08:45)
[2019-04-04 09:34] VITALS: BP 131/76; PULSE 71; RESP 16; TEMP 37.1; O2SAT 97
[2019-04-04] MEDS: Lactated Ringers 1,000 ML 75 ML IV ×2 (10:34→20:59)
--- NOTE | 2019-04-04 13:24 | PCM.DC.GS ---
<Meseret Gavin - Last Filed: 04/04/19 13:24> Discharge Diet: Light diet - advance as tolerated May shower in (days): 0 Lifting Restrictions: no lifting >20 lbs x4 wks, caution with long buggy rides for the first 4wk Call your doctor if your incision/area has: Continuous Slow Oozing, Sudden Increased Bleeding, Increased Pain/ Swelling, Increased Redness, Foul Smelling Discharge, Swelling at the incision site Call your doctor if you observe: Fever of 101 or Higher Change Dressing in (Days):: 1 - Do not put any lotions or creams on the incision Additional Instructions: Okay to take ibuprofen 400-600 mg PO q6hr PRN along with the Percocet. Avoid Tylenol since there is already Tylenol in the Percocet. If you do take Tylenol make sure that you do not go over 3 g a day. Okay to take Tylenol 650 mg p.o. every 6 hours as needed. Percocet does have 325 mg of Tylenol in each pill. Your [id number] Percocet may have 325 mg or 500 mg make sure to look at the bottle. Take all pain meds with food. Percocet can cause constipation recommend taking daily stool softener (i.e. Colace/docusate) while taking the pain meds. Recommend starting some MiraLAX in 1 to 2 days if no bowel movement. If still no bowel movement the following day recommend taking magnesium citrate half the bottle and waiting 4-6 hours if still no results take the other half the bottle. Allergies/Adverse Reactions: Allergies No Known Allergies Allergy (Verified 03/31/19 12:21) Medications to take at Discharge Oxycodone HCl/Acetaminophen [Percocet 5/325] 1 - 2 tablet PO Q6H PRN PRN 4 Days #20 tablet 04/04/19 The following prescriptions were given: Oxycodone HCl/Acetaminophen [Percocet 5/325] 1 - 2 tablet PO Q6H PRN PRN 4 Days #20 tablet PRN Reason: Pain Primary Care Physician: Care Physician,No Primary [Primary Care Provider] - Test Results: Test results from this visit will be discussed in further detail at your follow-up appointment, if applicable. Please Follow Up With: Meseret Gavin MD - After 5 PM/on the weekends call [phone] with any concerns When: Call the office for follow-up appt on April 12 or April 15 for staple removal Proposed Discharge Date: 04/05/19 <Augustine Garcia - Last Filed: 04/05/19 08:14> Discharge Activity: No Restrictions Test Results: Test results from this visit will be discussed in further detail at your follow-up appointment, if applicable.
--- NOTE | 2019-04-04 13:28 | DCINST_ITS ---
<Meseret Gavin - Last Filed: 04/04/19 13:24> Discharge Diet: Light diet - advance as tolerated May shower in (days): 0 Lifting Restrictions: no lifting >20 lbs x4 wks, caution with long buggy rides for the first 4wk Call your doctor if your incision/area has: Continuous Slow Oozing, Sudden Increased Bleeding, Increased Pain/ Swelling, Increased Redness, Foul Smelling Discharge, Swelling at the incision site Call your doctor if you observe: Fever of 101 or Higher Change Dressing in (Days):: 1 - Do not put any lotions or creams on the incision Additional Instructions: Okay to take ibuprofen 400-600 mg PO q6hr PRN along with the Percocet. Avoid Tylenol since there is already Tylenol in the Percocet. If you do take Tylenol make sure that you do not go over 3 g a day. Okay to take Tylenol 650 mg p.o. every 6 hours as needed. Percocet does have 325 mg of Tylenol in each pill. Your [id number] Percocet may have 325 mg or 500 mg make sure to look at the bottle. Take all pain meds with food. Percocet can cause constipation recommend taking daily stool softener (i.e. Colace/docusate) while taking the pain meds. Recommend starting some MiraLAX in 1 to 2 days if no bowel movement. If still no bowel movement the following day recommend taking magnesium citrate half the bottle and waiting 4-6 hours if still no results take the other half the bottle. Allergies/Adverse Reactions: Allergies No Known Allergies Allergy (Verified 03/31/19 12:21) Medications to take at Discharge Oxycodone HCl/Acetaminophen [Percocet 5/325] 1 - 2 tablet PO Q6H PRN PRN 4 Days #20 tablet 04/04/19 The following prescriptions were given: Oxycodone HCl/Acetaminophen [Percocet 5/325] 1 - 2 tablet PO Q6H PRN PRN 4 Days #20 tablet PRN Reason: Pain Primary Care Physician: Care Physician,No Primary [Primary Care Provider] - Test Results: Test results from this visit will be discussed in further detail at your follow- up appointment, if applicable. Please Follow Up With: Meseret Gavin MD - After 5 PM/on the weekends call [phone] with any concerns When: Call the office for follow-up appt on April 12 or April 15 for staple removal Proposed Discharge Date: 04/05/19 <Augustine Garcia - Last Filed: 04/05/19 08:14> Discharge Activity: No Restrictions Test Results: Test results from this visit will be discussed in further detail at your follow- up appointment, if applicable.
--- NOTE | 2019-04-04 13:30 | PCM.DC.SUM ---
<JoseAugustine - Last Filed: 04/05/19 08:15> Discharge Date and Diagnosis - Primary Discharge Diagnosis Active and Suspected Problems Perforated diverticulum of large intestine (Acute) Severe sepsis (Acute) - Secondary Discharge Diagnosis Chronic Problems Obesity (Chronic) Hospital Course and Treatment Imaging Results: Clinical Impression(s) from Imaging Studies Abdomen/Pelvis CT 03/31/19 12:38 IMPRESSION: 1. Acute diverticulitis of the distal most left colon. There are pockets of extraluminal gas within the pericolonic inflammatory changes, but not a thick walled/mature pericolonic abscess. Small volume free gas also present in the abdomen. No sign of bowel obstruction. 2. Small, fat-containing umbilical hernia. 3. 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 N.B. : The above information has been verbally conveyed by James Johnston MD to Katelynn Almeida MD, on 03/31/2019 14:49:21 (ET). Electronically Signed: James Johnston MD at 14:54 EDT , Service support , ADDENDUM: 03/31/19 1501 IMPRESSION: 1. Acute diverticulitis of the distal most left colon. There are pockets of extraluminal gas within the pericolonic inflammatory changes, but not a thick walled/mature pericolonic abscess. Small volume free gas also present in the abdomen. No sign of bowel obstruction. 2. Small, fat-containing umbilical hernia. 3. 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 N.B. : The above information has been verbally conveyed by James Johnston MD to Katelynn Almeida MD, on 03/31/2019 14:49:21 (ET). Electronically Signed: James Johnston MD at 14:54 EDT , Service support , KUB X-Ray 04/03/19 13:42 IMPRESSION: The tip of the nasogastric tube is in the body of the stomach. Electronically Signed: Erik Story, at 14:14 EDT , Service support , Consultations 04/01/19 19:34 Consult: Onc/Wound/appraiser irrigation tax Routine Comment: Reason for Consult:: distal tranverse colostomy - Physical Exam Vital Signs Temp Pulse Resp BP Pulse Ox 98.5 F 65 16 105/57 L 96 04/05/19 03:06 04/05/19 03:06 04/05/19 03:06 04/05/19 03:06 04/05/19 03:06 Oxygen Flow Rate (L/min) 1 Oxygen Delivery Method Room Air Weight: 231 lb 14.821 oz Body Mass Index (BMI) 33.8 Intake and Output for Last 24 Hours 04/03/19 04/04/19 04/05/19 23:59 23:59 23:59 Intake Total 1881 / 1881 2810 / 2810 920 / 920 Output Total 670 / 670 1135 / 1135 650 / 650 Balance 1211 / 1211 1675 / 1675 270 / 270 Microbiology Past 72 Hours 04/01/19 15:29 Gram Stain - Final Fluid - Peritoneal Body Fluid Culture - Final Escherichia coli Home Medications: Medications to take at Discharge Oxycodone HCl/Acetaminophen [Percocet 5/325] 1 - 2 tablet PO Q6H PRN PRN 4 Days #20 tablet 04/04/19 Following Prescrptions Were Given to Patient: Oxycodone HCl/Acetaminophen [Percocet 5/325] 1 - 2 tablet PO Q6H PRN PRN 4 Days #20 tablet PRN Reason: Pain Primary Care Physician: Care Physician,No Primary [Primary Care Provider] - <Meseret Gavin - Last Filed: 04/05/19 18:37> Discharge Date and Diagnosis Date of Admission: 03/31/19 Date of Discharge: 04/05/19 - Primary Discharge Diagnosis Active and Suspected Problems Perforated diverticulum of large intestine (Acute) Severe sepsis (Acute) - Secondary Discharge Diagnosis Chronic Problems Obesity (Chronic) Hospital Course and Treatment Consultations 04/01/19 19:34 Consult: Onc/Wound/appraiser irrigation tax Routine Comment: Reason for Consult:: distal tranverse colostomy Operations: - - Laparoscopic converted open left hemicolectomy, Marie's procedure, mobilization of splenic flexure on 04/01/2019 Procedures: None Summary of Care Provided: The patient is a 48 year old F patient came into the ER due to left-sided abdominal pain which started the night before. CT abdomen pelvis was done which showed perforated diverticulitis with no obvious abscess at the time. Patient's had a leukocytosis of 12. Patient was kept n.p.o. with IV fluids and started on Zosyn IV antibiotics. Patient did have a questionable tachycardia that night however on manual check her heart rate was in the 80s. However later the next day patient did starting to have increased pain as well as some tachycardia. And patient's white blood cell count was slightly up from the 12.1-12.3 even with the antibiotics. Patient underwent laparoscopic letter to open left hemicolectomy, Marie's procedure, mobilization of splenic flexure due to perforated appendicitis with purulent fluid throughout the abdomen. Postoperatively patient went to the ICU overnight to monitor her blood pressures which remained stable and she did not require any pressors after surgery. Postop day 1 patient was transferred back to a standard room. Patient had an NG and Gimenez. Both were able to be removed. By postop day 3 patient began to have flatus in her colostomy. Agreeable to start patient on clears and advance diet to full's the following day regular. - Physical Exam General: Alert, Oriented x3, Cooperative, No apparent distress Lungs: Normal air movement Cardiovascular: Regular rate Abdomen: Soft, Non-Distended, Tender - near incision with cezar, - - LUQ colostomy Vital Signs Temp Pulse Resp BP Pulse Ox 98.7 F 71 16 131/76 H 97 04/04/19 09:34 04/04/19 09:34 04/04/19 09:34 04/04/19 09:34 04/04/19 09:34 Oxygen Flow Rate (L/min) 1 Oxygen Delivery Method Room Air Weight: 232 lb 9.403 oz Body Mass Index (BMI) 33.8 Intake and Output for Last 24 Hours 04/02/19 04/03/19 04/04/19 23:59 23:59 23:59 Intake Total 3906.8 / 3906.8 1881 / 1881 1305 / 1305 Output Total 1240 / 1240 670 / 670 435 / 435 Balance 2666.8 / 2666.8 1211 / 1211 870 / 870 Microbiology Past 72 Hours 04/01/19 15:29 Gram Stain - Final Fluid - Peritoneal Body Fluid Culture - Final Escherichia coli Laboratory Tests Past 24 Hrs 04/04/19 04/04/19 05:25 05:25 WBC 4.7 RBC 3.22 L Hgb 9.8 L Hct 29.4 L MCV 91.3 MCH 30.4 MCHC 33.3 RDW 12.8 RDW Differential 42.3 Plt Count 155 MPV 9.3 Immature Gran % (Auto) 0.400 Neut % (Auto) 61.7 Lymph % (Auto) 26.6 [place] % (Auto) 11.1 H Eos % (Auto) 0.2 Baso % (Auto) 0.0 Absolute Neuts (auto) 2.9 Absolute Lymphs (auto) 1.24 Total Counted Not Reportable Sodium 145 Potassium 3.8 Chloride 114 H Carbon Dioxide 23.0 Anion Gap 8 BUN 16 Creatinine 0.43 L Estim Creat Clear Calc 158.97 Est GFR (MDRD) Af Amer 203 Est GFR (MDRD) Non-Af 168 BUN/Creatinine Ratio 37.3 H Glucose 73 L Calcium 7.7 L Phosphorus 2.3 L Discharge Diet: Light diet - advance as tolerated May shower in (days): 0 Call your doctor if your incision/area has: Continuous Slow Oozing, Sudden Increased Bleeding, Increased Pain/ Swelling, Increased Redness, Foul Smelling Discharge, Swelling at the incision site Call your doctor if you observe: Fever of 101 or Higher Change Dressing in (Days):: 1 - Do not put any lotions or creams on the incision Please Follow Up With: Meseret Gavin MD - After 5 PM/on the weekends call [phone] with any concerns When: Call the office for follow-up appt on April 12 or April 15 for staple removal Additional Instructions: Okay to take ibuprofen 400-600 mg PO q6hr PRN along with the Percocet. Avoid Tylenol since there is already Tylenol in the Percocet. If you do take Tylenol make sure that you do not go over 3 g a day. Okay to take Tylenol 650 mg p.o. every 6 hours as needed. Percocet does have 325 mg of Tylenol in each pill. Your [id number] Percocet may have 325 mg or 500 mg make sure to look at the bottle. Take all pain meds with food. Percocet can cause constipation recommend taking daily stool softener (i.e. Colace/docusate) while taking the pain meds. Recommend starting some MiraLAX in 1 to 2 days if no bowel movement. If still no bowel movement the following day recommend taking magnesium citrate half the bottle and waiting 4-6 hours if still no results take the other half the bottle. Medical Necessity - Tobacco Use Smoking Status: Never smoker Meaningful Use Info Meaningful Use Diagnoses (Choose all that apply): None applicable
--- NOTE | 2019-04-04 13:34 | DS.PCM_ITS ---
<JoseAugustine - Last Filed: 04/05/19 08:15> Discharge Date and Diagnosis - Primary Discharge Diagnosis Active and Suspected Problems Perforated diverticulum of large intestine (Acute) Severe sepsis (Acute) - Secondary Discharge Diagnosis Chronic Problems Obesity (Chronic) Hospital Course and Treatment Imaging Results: Clinical Impression(s) from Imaging Studies Abdomen/Pelvis CT 03/31/19 12:38 IMPRESSION: 1. Acute diverticulitis of the distal most left colon. There are pockets of extraluminal gas within the pericolonic inflammatory changes, but not a thick walled/mature pericolonic abscess. Small volume free gas also present in the abdomen. No sign of bowel obstruction. 2. Small, fat-containing umbilical hernia. 3. 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 N.B. : The above information has been verbally conveyed by James Johnston MD to Katelynn Almeida MD, on 03/31/2019 14:49:21 (ET). Electronically Signed: James Johnston MD at 14:54 EDT , Service support , ADDENDUM: 03/31/19 1501 IMPRESSION: 1. Acute diverticulitis of the distal most left colon. There are pockets of extraluminal gas within the pericolonic inflammatory changes, but not a thick walled/mature pericolonic abscess. Small volume free gas also present in the abdomen. No sign of bowel obstruction. 2. Small, fat-containing umbilical hernia. 3. 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 N.B. : The above information has been verbally conveyed by James Johnston MD to Katelynn Almeida MD, on 03/31/2019 14:49:21 (ET). Electronically Signed: James Johnston MD at 14:54 EDT , Service support , KUB X-Ray 04/03/19 13:42 IMPRESSION: The tip of the nasogastric tube is in the body of the stomach. Electronically Signed: Erik Story, at 14:14 EDT , Service support , Consultations 04/01/19 19:34 Consult: Onc/Wound/club former Routine Comment: Reason for Consult:: distal tranverse colostomy - Physical Exam Vital Signs Temp Pulse Resp BP Pulse Ox 98.5 F 65 16 105/57 L 96 04/05/19 03:06 04/05/19 03:06 04/05/19 03:06 04/05/19 03:06 04/05/19 03:06 Oxygen Flow Rate (L/min) 1 Oxygen Delivery Method Room Air Weight: 231 lb 14.821 oz Body Mass Index (BMI) 33.8 Intake and Output for Last 24 Hours 04/03/19 04/04/19 04/05/19 23:59 23:59 23:59 Intake Total 1881 / 1881 2810 / 2810 920 / 920 Output Total 670 / 670 1135 / 1135 650 / 650 Balance 1211 / 1211 1675 / 1675 270 / 270 Microbiology Past 72 Hours 04/01/19 15:29 Gram Stain - Final Fluid - Peritoneal Body Fluid Culture - Final Escherichia coli Home Medications: Medications to take at Discharge Oxycodone HCl/Acetaminophen [Percocet 5/325] 1 - 2 tablet PO Q6H PRN PRN 4 Days #20 tablet 04/04/19 Following Prescrptions Were Given to Patient: Oxycodone HCl/Acetaminophen [Percocet 5/325] 1 - 2 tablet PO Q6H PRN PRN 4 Days #20 tablet PRN Reason: Pain Primary Care Physician: Care Physician,No Primary [Primary Care Provider] - <Meseret Gavin - Last Filed: 04/05/19 18:37> Discharge Date and Diagnosis Date of Admission: 03/31/19 Date of Discharge: 04/05/19 - Primary Discharge Diagnosis Active and Suspected Problems Perforated diverticulum of large intestine (Acute) Severe sepsis (Acute) - Secondary Discharge Diagnosis Chronic Problems Obesity (Chronic) Hospital Course and Treatment Consultations 04/01/19 19:34 Consult: Onc/Wound/club former Routine Comment: Reason for Consult:: distal tranverse colostomy Operations: - - Laparoscopic converted open left hemicolectomy, Marie's procedure, mobilization of splenic flexure on 04/01/2019 Procedures: None Summary of Care Provided: The patient is a 48 year old F patient came into the ER due to left-sided abdominal pain which started the night before. CT abdomen pelvis was done which showed perforated diverticulitis with no obvious abscess at the time. Patient's had a leukocytosis of 12. Patient was kept n.p.o. with IV fluids and started on Zosyn IV antibiotics. Patient did have a questionable tachycardia that night however on manual check her heart rate was in the 80s. However later the next day patient did starting to have increased pain as well as some tachycardia. And patient's white blood cell count was slightly up from the 12.1-12.3 even with the antibiotics. Patient underwent laparoscopic letter to open left hemicolectomy, Marie's procedure, mobilization of splenic flexure due to perforated appendicitis with purulent fluid throughout the abdomen. Postoperatively patient went to the ICU overnight to monitor her blood pressures which remained stable and she did not require any pressors after surgery. Postop day 1 patient was transferred back to a standard room. Patient had an NG and Gimenez. Both were able to be removed. By postop day 3 patient began to have flatus in her colostomy. Agreeable to start patient on clears and advance diet to full's the following day regular. - Physical Exam General: Alert, Oriented x3, Cooperative, No apparent distress Lungs: Normal air movement Cardiovascular: Regular rate Abdomen: Soft, Non-Distended, Tender - near incision with cezar, - - LUQ colostomy Vital Signs Temp Pulse Resp BP Pulse Ox 98.7 F 71 16 131/76 H 97 04/04/19 09:34 04/04/19 09:34 04/04/19 09:34 04/04/19 09:34 04/04/19 09:34 Oxygen Flow Rate (L/min) 1 Oxygen Delivery Method Room Air Weight: 232 lb 9.403 oz Body Mass Index (BMI) 33.8 Intake and Output for Last 24 Hours 04/02/19 04/03/19 04/04/19 23:59 23:59 23:59 Intake Total 3906.8 / 3906.8 1881 / 1881 1305 / 1305 Output Total 1240 / 1240 670 / 670 435 / 435 Balance 2666.8 / 2666.8 1211 / 1211 870 / 870 Microbiology Past 72 Hours 04/01/19 15:29 Gram Stain - Final Fluid - Peritoneal Body Fluid Culture - Final Escherichia coli Laboratory Tests Past 24 Hrs 04/04/19 04/04/19 05:25 05:25 WBC 4.7 RBC 3.22 L Hgb 9.8 L Hct 29.4 L MCV 91.3 MCH 30.4 MCHC 33.3 RDW 12.8 RDW Differential 42.3 Plt Count 155 MPV 9.3 Immature Gran % (Auto) 0.400 Neut % (Auto) 61.7 Lymph % (Auto) 26.6 Smith % (Auto) 11.1 H Eos % (Auto) 0.2 Baso % (Auto) 0.0 Absolute Neuts (auto) 2.9 Absolute Lymphs (auto) 1.24 Total Counted Not Reportable Sodium 145 Potassium 3.8 Chloride 114 H Carbon Dioxide 23.0 Anion Gap 8 BUN 16 Creatinine 0.43 L Estim Creat Clear Calc 158.97 Est GFR (MDRD) Af Amer 203 Est GFR (MDRD) Non-Af 168 BUN/Creatinine Ratio 37.3 H Glucose 73 L Calcium 7.7 L Phosphorus 2.3 L Discharge Diet: Light diet - advance as tolerated May shower in (days): 0 Call your doctor if your incision/area has: Continuous Slow Oozing, Sudden Increased Bleeding, Increased Pain/ Swelling, Increased Redness, Foul Smelling Discharge, Swelling at the incision site Call your doctor if you observe: Fever of 101 or Higher Change Dressing in (Days):: 1 - Do not put any lotions or creams on the incision Please Follow Up With: Meseret Gavin MD - After 5 PM/on the weekends call [phone] with any concerns When: Call the office for follow-up appt on April 12 or April 15 for staple removal Additional Instructions: Okay to take ibuprofen 400-600 mg PO q6hr PRN along with the Percocet. Avoid Tylenol since there is already Tylenol in the Percocet. If you do take Tylenol make sure that you do not go over 3 g a day. Okay to take Tylenol 650 mg p.o. every 6 hours as needed. Percocet does have 325 mg of Tylenol in each pill. Your cabs-fad-[id number] Percocet may have 325 mg or 500 mg make sure to look at the bottle. Take all pain meds with food. Percocet can cause constipation recommend taking daily stool softener (i.e. Colace/docusate) while taking the pain meds. Recommend starting some MiraLAX in 1 to 2 days if no bowel movement. If still no bowel movement the following day recommend taking magnesium citrate half the bottle and waiting 4-6 hours if still no results take the other half the bottle. Medical Necessity - Tobacco Use Smoking Status: Never smoker Meaningful Use Info Meaningful Use Diagnoses (Choose all that apply): None applicable
--- NOTE | 2019-04-04 13:35 | NURSING ---
In to assess stoma and midline abdominal incision. incision is well approximated with cezar intact. cleansed with soap and water. pat dry and applied a new dry dressing. colostomy appliance intact. there is a moderate amount of flatus noted in the appliance at this time. stoma is pink. pt currently up in chair. family at bedside. denies needs at this time.
[2019-04-04] MEDS: Ensure Clear 120 ML Liquid PO ×3 (14:01→20:59)
[2019-04-04 15:34] VITALS: BP 137/77; PULSE 72; RESP 16; TEMP 36.6; O2SAT 98
[2019-04-04 21:06] VITALS: BP 126/66; PULSE 73; RESP 18; TEMP 37.2; O2SAT 96
[2019-04-04] MEDS: oxyCODONE 5 MG Tablet PO (23:04)
[2019-04-05 03:06] VITALS: BP 105/57; PULSE 65; RESP 16; TEMP 36.9; O2SAT 96
[2019-04-05 09:00] VITALS: BP 123/71; PULSE 75; RESP 16; TEMP 37.1; O2SAT 96
--- NOTE | 2019-04-05 09:24 | CASEMGMT ---
Ostomy supply script faxed to [facility] at this time. Call to Sharita at [facility] and she is aware that pt to be discharged today and that script faxed, voices understanding. Fransisca CRISTINA CM
[2019-04-05] MEDS: Enoxaparin 40 MG/0.4 ML Syringe SC (10:26)
[2019-04-05] MEDS: 0.9% NaCl Peripheral Flush Adult/Peds IV (10:26)
[2019-04-05] MEDS: Ensure Clear 120 ML Liquid PO (10:26)
[2019-04-05] MEDS: Ibuprofen 200 MG Tablet PO (10:28)
--- NOTE | 2019-04-05 11:33 | PCM.PN.SRG ---
Patient Problems: Active and Suspected Problems Perforated diverticulum of large intestine (Acute) Severe sepsis (Acute) Subjective: Patient is doing well this morning and tolerating liquid diet. She actually had regular diet early this morning. She still has flatus from her colostomy bag. No increase in abdominal pain per patient. - Physical Exam General: Alert, Oriented x3 Lungs: Normal air movement Cardiovascular: Regular rate, Regular Rhythm Abdomen: Soft, Non-Distended Vital Signs Temp Pulse Resp BP Pulse Ox 98.8 F 75 16 123/71 H 96 04/05/19 09:00 04/05/19 09:00 04/05/19 09:00 04/05/19 09:00 04/05/19 09:00 Oxygen Flow Rate (L/min) 1 Oxygen Delivery Method Room Air Weight: 231 lb 14.821 oz Body Mass Index (BMI) 33.8 Intake and Output for Last 24 Hours 04/03/19 04/04/19 04/05/19 23:59 23:59 23:59 Intake Total 1881 / 1881 2810 / 2810 920 / 920 Output Total 670 / 670 1135 / 1135 650 / 650 Balance 1211 / 1211 1675 / 1675 270 / 270 Microbiology Past 72 Hours 04/01/19 15:29 Gram Stain - Final Fluid - Peritoneal Body Fluid Culture - Final Escherichia coli Medical Necessity - Tobacco Use Smoking Status: Never smoker Assessment/Plan All Active Problems Perforated diverticulum of large intestine (Acute) Severe sepsis (Acute) 48-year-old female status post sigmoid colectomy and end colostomy due to perforated diverticulitis 1. Patient is doing well this morning. She is tolerating a diet and having some flatus in her colostomy bag. No stool yet. 2. Okay for discharge today as the patient is tolerating a diet. Pain is well controlled. Augustine Garcia MD Pager: [facility] [address] [place] [address], [address] [place] [address] Office:
[2019-04-05 11:51] VITALS: BP 123/71; PULSE 75; RESP 18; TEMP 37.1; O2SAT 96
== END 2019-04-05 13:07 | disposition home or self-care (01) | DRG 329 ==
LOC: ED 12:52 → MS3 18:45 → ICU 04-01 17:35 → PCU 04-03 09:48
PROVIDERS: Admitting Provider Surgery; Emergency Provider Emergency Medicine; Visit Provider Surgery
PROC: 0DTN0ZZ Resection of Sigmoid Colon, Open Approach (ICD-10-PCS; CPT 44204; principal; 2019-04-01 14:35)
DX: K57.20 Diverticulitis of large intestine with perforation and abscess without bleeding (principal); A41.9 Sepsis, unspecified organism; R65.20 Severe sepsis without septic shock; Z53.31 Laparoscopic surgical procedure converted to open procedure; E83.39 Other disorders of phosphorus metabolism; E66.9 Obesity, unspecified; Z68.33 Body mass index [BMI] 33.0-33.9, adult
CPT/HCPCS: 36415; 74018; 74177; 80048; 80076; 81001; 83735; 84100; 84703; 85025; 87070; 87075; 87076; 87077; 87102; 87186; 87205; 87206; 88305; 88307; 93005; 99285; J7030; J7040; J7120; Q9967; A4216; J2405; J3490

== ENCOUNTER 2019-08-07 06:37 | Day surgery (SDC) | payer SELFPAY ==
[2019-07-01 08:52] VITALS: BMI 33.8
--- NOTE | 2019-07-01 08:52 | HP_ITS ---
Intake Vital Signs 06/06/19 Body Mass Index (BMI) 33.8 Intake Visit Reasons: 1 mo FU Diverticulitis Chief Complaint: post colectomy Allergies No Known Allergies Allergy (Verified 05/21/19 08:34) [facility] Medical History (Updated 04/12/19 @ 13:20 by Ladonna Hager) History of diverticulosis (Acute) History of obesity (Acute) History of sepsis (Acute) Surgical History (Updated 05/09/19 @ 13:32 by Ana Smith) History of colectomy (Acute) Family History (Updated 04/12/19 @ 13:20 by Ladonna Hager) Mother Cancer kidney Social History (Updated 07/01/19 @ 08:52 by Meseret Gavin MD) Smoking Status: Never smoker HPI HPI HPI: MANE AGUILAR, is a 48 F who presents to the office today for HPI HPI Surgical H&P: Yes HPI: MANE AGUILAR, is a 48 F who presents to the office today for follow-up from laparoscopic converted to open left hemicolectomy, Marie's procedure due to perforated sigmoid diverticulitis and sepsis on 04/01/2018. Patient's incision has healed. Patient is doing well with her colostomy. Patient states she is eating well. Patient states she does sometimes get a little dizzy she is not sure she drinks enough water. ROS General General: Yes fatigue Gastro Gastrointestinal: No abdominal pain, No nausea or vomiting, No constipation Exam Const General: cooperative, comfortable, no acute distress Resp Effort & Inspection: normal respiratory effort Cardio Rate: regular rate GI Inspection: non-distended, incision (Well-healed) Palpation: soft, no guarding, nontender, other (Colostomy pink) Assessment & Plan Problems 1. S/P left colectomy Z90.49 2. Status post Phyllis's procedure Z93.3 3. Perforated diverticulum of large intestine K57.20 Plan Patient is doing well, tolerating diet, incision well-healed. Did discuss with patient that if she would like to be reversed would first recommend getting a colonoscopy. Patient plans to talk to her family about scheduling a colonoscopy and will get back to us. I have discussed the above with the patient. I have offered the patient colonoscopy for evaluation. I have explained the risks/benefits of the procedure and described the procedure. I have discussed the risks with the patient, including but not limited to: infection, bleeding, perforation of the GI tract requiring emergency surgery, inability to complete the procedure, injury to any internal organs, complications of anesthesia, etc. - the patient understands and agrees to proceed. I have answered all the patient's questions to the patient's satisfaction and the patient has no further questions. The patient has been given instructions for the colon cleansing preparation. 1 day of clears, MiraLAX Dulcolax split prep. Meseret Gavin M.D. Pager: [phone] [facility] [address] [place] [address], [address] [place] [address] Office: [phone] Plan Detail Follow Up Patient wants to know when she wants to schedule a colonoscopy Coding Level of Care Code Global Post Op Diagnoses S/P left colectomy Z90.49 Status post Phyllis's procedure Z93.3 Perforated diverticulum of large intestine K57.20 07/01/19 0852 <Electronically signed by Meseret Kent am, MD> Date _ Meseret Gavin MD
[2019-08-07 07:15] VITALS: BP 118/70; PULSE 80; RESP 16; TEMP 36.8; O2SAT 100
[2019-08-07] MEDS: Lactated Ringers 1,000 ML 100 ML IV (07:25)
--- NOTE | 2019-08-07 07:37 | HP.PCM_ITS ---
History of Present Illness Date of Admission: 08/07/19 The patient is a 48 year old F presents for colonoscopy due to history of perforated diverticulitis status post Phyllis procedure. Patient has been tolerating a diet, has bowel function daily. Patient denies any family history of colon cancer and no history of previous scopes. Past Medical/Surgical History - Planned Operation Planned Operative Procedure/s: colonoscopy Date of Operative Procedure: 08/07/19 Permit Signed: Yes S.O.S: No Is This Patient Having a Total Joint: No - Previous Hospitalizations/Surgeries HX Hospitalizations: Yes HX of Surgeries: UMBILICAL HERNIA 2016. COLOSTOMY MARCH 2019 Any Problems With Anesthesia: No You/Your Family Experience Fever (Hyperthermia) With Anes: No Cholinesterase deficiency: No - Cardiovascular Hx Chest Pain within Last 2 months: No Hx of Irregular Heartbeat and/or Afib: No Hx Heart Attack: No Hx Congestive Heart Failure: No Hx Rheumatic Fever: No Hx Hypertension: No Hx Internal Defibrillator: No Hx Pacemaker: No Hx Cardiac Catheterization: No Hx Cardiac Surgery/Stents/Etc.: No Hx Stress Test: No HX Edema: No Hx Pain in Legs when Walking/Leg Cramps: No - Respiratory Chronic Cough: No HX of Shortness of Breath: No Hoarseness: No Hx Chronic Obstructive Pulmonary Disease (COPD): No Hx Asthma: No Hx Emphysema: No Hx Sleep Apnea: No CPAP: No BIPAP: No Hx Oxygen Use at Home: No Hx Respiratory Tract Infection/Cold (presently): No Do You Snore Loudly (louder than talking or can be heard): No Do You Often Feel Tired/ Fatigued/ Sleepy Dring Daytime?: No Has Anyone Observed You Stop Breathing During Sleep?: No Result (for STOP score): Negative Hx Smoking: No Smoking Status: Unknown if ever smoked - Gastrointestinal Hx Gastroesophageal Reflux: Yes Controlled With Meds: Yes - TUMS OR OTC Hx Gastrointestinal Disorders: Yes - DIVERTICULITIS=COLOSTOMY Hx Gastrointestinal Bleed: No Hx Ulcer: No Hx Hiatal Hernia: No Difficulty Chewing/Swallowing: No Recent Onset of Swallowing Problems: No Special diet followed at home: No Hx Unplanned Weight Loss of 20#: No HX Unplanned Weight Gain of 20#: No - Neurological Hx Seizures: No HX Syncope/Blackout Spells/Unconsciousness: No Hx CVA/Stroke: No Hx Transient Ischemic Attacks (TIA): No Hx Multiple Sclerosis: No Hx Parkinson's Disease: No Hx Head/Neck Injury: No Hx Headaches: No Hx Back Injury/Pain: No Recent Onset of Speech Difficulty: No Restless Legs: No Does patient have nerve stimulator: No Patient instructed to have device shut off: No Rep notified?: No - Blood Disorder Hx Leukemia: No Bleeding Tendencies: No Hx Deep Vein Thrombosis: No Hx High Cholesterol: No Blood Transmitted Disease: No Hx Hepatitis: No Hx Cirrhosis: No Hx Anemia: No Hx Blood Disorders: No - Reproduction : No Hx Hysterectomy: No Hx Tubal Ligation: No - Genitourinary Hx Renal Disease: No Hx Dialysis: No - Musculoskeletal Hx Arthritis: No Hx Rheumatoid Arthritis: No Hx Gout: No Recent Onset of an Orthopedic Problem: No - Endocrine Hx Diabetes: No Insulin: No Thyroid Disease: No Hx Steroid Therapy: No - Psycho/Social Hx Substance Use: No Hx Alcohol Use: No Hx Anxiety: No Hx Depression: No Mental Illness: No Hx Dementia: No - Miscellaneous Hx Cancer: No Recent Exposure to Contagious Disease: No Active MRSA: No Hx of C-Diff: No - UPPER DENTURES NONE LOWER Any Loose Teeth: No - UPPER DENTURES NONE LOWER Allergies No Known Allergies Allergy (Verified 05/21/19 08:34) Maternal Family History: Family History (Last Reviewed 05/21/19 @ 08:34 by Ana Smith) Mother Cancer Cancer - Kidney - Discharge Is Pt Admitted From a Long-Term, or a Correction: No - Physical Exam General: Alert, Oriented x3, Cooperative, No apparent distress HEENT: Atraumatic Lungs: Normal air movement Cardiovascular: Regular rate Abdomen: Soft, Non Tender, Non-Distended, - - Colostomy pink, incision well- healed Extremities: No clubbing, No cyanosis Neurological: Cranial nerves II-XII grossly intact Vital Signs Temp Pulse Resp BP Pulse Ox 98.2 F 80 16 118/70 100 08/07/19 07:15 08/07/19 07:15 08/07/19 07:15 08/07/19 07:15 08/07/19 07:15 Oxygen Delivery Method Room Air Weight: 200 lb Body Mass Index (BMI) 33.8 Assessment/Plan All Active Problems (Last Reviewed 05/21/19 @ 08:34 by Ana Smith) Perforated diverticulum of large intestine (Acute) Severe sepsis (Acute) 48-year-old female status post Phyllis procedure due to perforated diverticulitis for diagnostic colonoscopy Surgery Risks - Colonoscopy I discussed with the patient the risks of the procedure: Yes Risks Include but are not Limited To: Risks include but are not limited to: Bleeding, perforation requiring further surgery, inability to complete colonoscopy requiring barium enema. Patient no further questions this time.
--- NOTE | 2019-08-07 08:00 | COLBX_PTH ---
PATIENT: MANE AGUILAR LOC: EN U#:[id number] AGE/SX: 48/F ROOM: RE08/07/[address]: Dr. Meseret Gavin MD : 1970 BED: DIS: 08/07/2019 SPEC #: [id number] RECD: 08/07/19 11:02 STATUS: STEWART DEN #: [id number] BHUPENDRA: 08/07/19 08:[address]: Meseret Gavin DEPT: SURGICAL PATHOLOGY RECD BY: Jairo Oden ENTERED: 08/07/19 13:39 SP TYPE: COLON BX OTHR DR: No Primary Care Phys Tissues: A - Sigmoid colon biopsy B - Appendix, NOS C - Ileum, NOS D - Transverse colon Procedures: Surgery Specimen Level IV HEADER OPERATION: Colonoscopy (MAC) PRE-OP DIAGNOSIS: History of diverticulitis TISSUE SUBMITTED: A - Distal sigmoid nodule biopsy, B - Appendix mass biopsy, C - Ileocecal mass biopsy, D - Transverse colon nodule biopsy MICROSCOPIC DIAGNOSIS A. Distal sigmoid nodule, biopsy: Fragments of colonic mucosa, no pathologic diagnosis. See comment. B. Appendix mass, biopsy: Fragments of colonic mucosa, no pathologic diagnosis. See comment. C. Ileocecal mass, biopsy: Fragments of tubular adenoma. D. Transverse colon nodule, biopsy: Fragments of colonic mucosa, no pathologic diagnosis. See comment. SJ:rg 08/08/19 COMMENT A, B & D - Prominent lymphoid aggregates are noted, favor benign. Correlation with clinical, endoscopic findings and appropriate follow up are necessary. Please make reference to previous specimen ([id number]) sigmoid colon, segmental resection with diagnosis of diverticular disease of colon with rupture and associated pericolonic abscess formation. MICROSCOPIC DESCRIPTION Slides are reviewed. GROSS DESCRIPTION A - Received in fixative is one container labeled with the patient's name and designated distal sigmoid nodule. The specimen consists of multiple irregular fragments of light beaver soft tissue that in aggregate measure 0.5 x 0.4 x 0.1 cm. The specimen is totally submitted in one cassette. B - Received in fixative is one container labeled with the patient's name and designated appendix mass biopsy. The specimen consists of two irregular fragments of light beaver soft tissue that in aggregate measure 0.6 x 0.2 x 0.1 cm. The specimen is totally submitted in one cassette. C -Received in fixative is one container labeled with the patient's name and designated ileocecal mass biopsy. The specimen consists of two irregular fragments of light beaver soft tissue that in aggregate measure 0.6 x 0.3 x 0.1 cm. The specimen is totally submitted in one cassette. D - Received in fixative is one container labeled with the patient's name and designated transverse colon nodule biopsy. The specimen consists of two irregular fragments of light beaver soft tissue that in aggregate measure 0.8 x 0.4 x 0.1 cm. The specimen is totally submitted in one cassette. / SJ:rg 08/07/19 TC:1 CPT: 54963 x4
[2019-08-07 08:26] LABS: Internal QC Validated? YES +Cl - CLEAR BKGD
[2019-08-07 08:27] LABS: Pregnancy, Urine Negative Negative
[2019-08-07 09:41] VITALS: BP 106/58; BP 118/70; PULSE 74; RESP 18; TEMP 36.8; O2SAT 99
[2019-08-07 09:46] VITALS: BP 114/67; BP 118/70; PULSE 74; RESP 17; O2SAT 99
[2019-08-07 09:51] VITALS: BP 117/68; BP 118/70; PULSE 71; RESP 16; O2SAT 99
--- NOTE | 2019-08-07 09:51 | OP.ENDO_ITS ---
08/07/2019 No Primary Care Physician Re : Colonoscopy procedure for Antonia Mauro Dear Care Physician This procedure was performed on Wednesday, August 07, 2019. My impressions and recommendations are as follows: Impressions : - Many less than 5 mm polyps in the distal sigmoid colon and in the transverse colon, removed with a cold biopsy forceps. Resected and retrieved. Biopsied. 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 Biopsied. 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 Biopsied. Recommendations : - Discharge patient to home. - Resume previous diet. - Continue present medications. - Await pathology results. - Repeat colonoscopy at appointment to be scheduled cecal and appendiceal orifice mass/polyp resection. - Refer to a senior mortgage loan processor at appointment to be scheduled. My findings are described in the full procedure note, which is enclosed. If I can be of further assistance, please feel free to contact me at Doctor phone number(s): , Work: . Sincerely, MD Meseret Kline MD 08/07/2019 9:51:34 AM This report has been signed electronically.
[2019-08-07 09:56] VITALS: BP 116/66; BP 118/70; PULSE 73; RESP 17; TEMP 36.3; O2SAT 100
[2019-08-07 10:47] VITALS: BP 118/70
== END 2019-08-07 10:49 | disposition home or self-care (01) ==
LOC: EN 06:41 → AC 06:42
PROVIDERS: Anesthesiology; Referring Provider Surgery; Visit Provider Surgery
PROC: 0DJD8ZZ Inspection of Lower Intestinal Tract, Via Natural or Artificial Opening Endoscopic (ICD-10-PCS; CPT 45378; principal; 2019-08-07 07:55)
DX: K63.5 Polyp of colon (principal); D49.0 Neoplasm of unspecified behavior of digestive system; K56.690 Other partial intestinal obstruction; Z87.19 Personal history of other diseases of the digestive system; Z93.3 Colostomy status; E66.9 Obesity, unspecified; Z68.33 Body mass index [BMI] 33.0-33.9, adult; Z86.19 Personal history of other infectious and parasitic diseases; Z90.49 Acquired absence of other specified parts of digestive tract
CPT/HCPCS: 45380; 81025; 88305; J7120

== ENCOUNTER → 2020-03-17 09:11 | Outpatient (CLI) | payer OTHER, SELFPAY ==
[2020-02-18 09:12] VITALS: BMI 33.8
--- NOTE | 2020-03-17 09:14 | US_ITS ---
STUDY: ABDOMINAL ULTRASOUND - RIGHT UPPER QUADRANT REASON FOR VISIT: Female, 49 years old ABD/ RUQ PAIN TECHNIQUE: Ultrasound evaluation of the right upper quadrant was performed with real-time and static stevenson-scale imaging. TECHNICAL QUALITY: Adequate. COMPARISON: None. FINDINGS: Liver: The liver measures 18.2 cm. There is increased echogenicity consistent with fatty infiltration. The bile ducts are within normal limits. There is hepatic color flow. The direction of portal flow is hepatopetal. There is no demonstrated mass lesion. Gallbladder: Normal distended gallbladder. The gallbladder wall measures 1.7 mm. There is a negative sonographic Chou''s sign. There is no pericholecystic fluid. There are no gallstones. Common Bile Duct (C.B.D.): The common bile duct measures 4.1 mm. Pancreas: Normal size of the head, body and tail of the pancreas. There is increased echogenicity of the pancreas. There is no demonstrated pancreatic mass or cyst. Right Kidney: Normal size of the right kidney. The right kidney measures 11.3 x 5.9 x 5.1 cm. Normal renal cortex. The right cortex measures 1.2 cm. There is no demonstrated renal mass or cyst. There is no right hydronephrosis. US/Gallbladder IMPRESSION: Fatty liver, no discrete lesion Nonspecific echogenic pancreas Electronically Signed: James Pal MD at 17:22 EDT , Service support ,
== END ==
PROVIDERS: PCP Family Medicine; Referring Provider Family Medicine; Visit Provider Family Medicine
DX: R10.9 Unspecified abdominal pain (principal)
CPT/HCPCS: 76705

== ENCOUNTER → 2020-04-07 14:46 | Outpatient (CLI) | payer OTHER, SELFPAY ==
[2020-04-07 14:16] VITALS: BMI 33.8
[2020-04-07 17:13] LABS: ALB/GLOB Ratio 0.9 RATIO (0.9-2.4); AST(SGOT) 14 U/L (15-37); Alanine Aminotransfer ALT/SGPT 20 U/L (13-56); Albumin, Serum 3.5 g/dL (3.2-5.0); Alkaline Phosphatase 43 U/L (45-117); Anion Gap 6 (5-15); BUN 8 mg/dL (7-18); BUN/Creat Ratio 15.6 RATIO (10-20); Calcium,Total 8.9 mg/dL (8.5-10.1); Chloride 108 mmol/L (98-107); Creatinine, Serum 0.51 mg/dL (0.55-1.02); EST Glomerular Filtration Rate 137 mL/min (>60); Est Glom Filt Rate - Afr Amer 165 mL/min (>60); Globulin 3.8 g/dL (2.2-4.2); Glucose 78 mg/dL (74-106); Potassium 3.8 mmol/L (3.5-5.1); Protein, Total 7.3 g/dL (6.4-8.2); Sodium Level 141 mmol/L (136-145)
== END ==
PROVIDERS: PCP Family Medicine; Referring Provider Family Medicine; Visit Provider Family Medicine
DX: R10.9 Unspecified abdominal pain (principal)
CPT/HCPCS: 36415; 80053

== ENCOUNTER 2020-05-07 08:31 | Inpatient (IN) | payer OTHER, SELFPAY ==
[2020-04-22 13:25] VITALS: BMI 35.4
--- NOTE | 2020-04-30 10:49 | HP_ITS ---
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 Is patient in pain?: No Allergies No Known Allergies Allergy (Verified 04/22/20 13:24) Medications ibuprofen 200 mg tablet 200 mg PO Q6H 04/17/19 [History Confirmed 04/29/20] neomycin 500 mg tablet 500 mg PO .COMPLEX #6 tab 04/27/20 [Rx Confirmed 04/29/20] Metronidazole 500 mg PO .COMPLEX 04/29/20 [History Confirmed 04/29/20] PFSH Medical History History of diverticulosis (Acute) History of obesity (Acute) History of sepsis (Acute) Surgical History History of colectomy (Acute) History of hernia repair (Acute) Family History Mother Cancer kidney Other Heart disease Seizures Social History (Updated 04/30/20 @ 10:[address] Meseret Gavin MD) Smoking Status: Never smoker alcohol intake: never substance use type: does not use what type of physical activity do you participate in: none HPI HPI HPI: MANE AGUILAR, is a 49 F who presents to the office today for HPI HPI Surgical H&P: Yes HPI: MANE AGUILAR, is a 49 F who presents to the office today for question about colostomy reversal. Patient initially had a colostomy placed for perforated diverticulitis with peritonitis. Patient did have a follow-up colonoscopy which showed tubular adenoma with a wider base on the ileocecal valve as well as another lesion on the appendiceal orifice. The appendiceal orifice this was found but benign. Patient was sent to GI for removal of the ileocecal valve polyp which again was just a tubular adenoma and a repeat biopsy of the appendiceal orifice this was also done which only showed prominent lymphoid aggregates and focal active colitis which all states could be due to bowel prep or medication induced injury. Patient states she has been doing well tolerating diet, having bowel function daily. Her midline incision is completely healed. ROS General General: Yes fatigue; no colon cancer Gastro Gastrointestinal: No abdominal pain, No nausea or vomiting, No constipation Exam Const General: cooperative, comfortable, no acute distress, well developed Resp Effort & Inspection: normal respiratory effort Cardio Rate: regular rate GI Inspection: non-distended Palpation: soft, nontender Other: Left mid abdomen colostomy, pink with stool in bag, midline incision well-healed Assessment & Plan Problems 1. S/P left colectomy Z90.49 2. Status post Phyllis's procedure Z93.3 3. Perforated diverticulum of large intestine K57.20 Plan We will plan for open colostomy reversal. Patient also had that benign lesion at the appendiceal orifice this which only showed increased lymphoid tissue on last biopsy by Dr. Roberson. We will plan also do an appendectomy at the same time. Procedure including risks but not limited to bleeding, infection, injury to another organ, hernia are all discussed with the patient and her family member. Patient no further questions this time. Patient will call back to let us know if she would like to schedule reversal sometime in April or if she would wait until August as she has a wedding in May she plans to attend. Meseret Gavin M.D. Pager: [phone] [facility] [address] [place] [address], [address] [place] [id number] Office: [phone] Addendum: Patient did call the office and states she would like to schedule a reversal for April. Plan Detail Follow Up We will wait patient decision on whether she wants surgery in April or she wants to wait till August. Coding Level of Care Code Off vis,est,level 3 Diagnoses S/P left colectomy Z90.49 Status post Phyllis's procedure Z93.3 Perforated diverticulum of large intestine K57.20 COVID (Procedure Consent) Procedure Criteria Procedure Criteria: Yes Elective The surgeon/proceduralist and patient have discussed in detail the risk of exposure to and/or potential harm posed by the COVID-19 virus with having a surgery/procedure at this time versus the risk of? delaying the surgery/procedure. It is not possible to know either the risk of delaying the surgery or procedure or chance of getting an infection with perfect accuracy, but a joint decision was made between the patient and the surgeon/proceduralist ?to proceed at this time with the scheduled surgery/procedure as indicated on the consent form. 04/30/20 1049 <Electronically signed by Meseret Kent am, MD> Date _ Meseret Gavin MD I have re-examined the patient. There are no clinical changes since date of exam.
[2020-05-07] VITALS (12 sets, daily range): BP systolic 102–136; BP diastolic 63–75; PULSE 66–96; RESP 15–20; TEMP 36.3–36.8; O2SAT 94–100; BMI 34.4
[2020-05-07 09:31] LABS: Bedside Glucose 76 mg/dL (70-110)
[2020-05-07] MEDS: Acetaminophen 500 MG Tablet 1000 MG PO (09:36)
[2020-05-07] MEDS: Gabapentin 600 MG Tablet PO (09:36)
[2020-05-07] MEDS: Lactated Ringers 1,000 ML 40 ML IV (09:37)
[2020-05-07 10:08] LABS: Internal QC Validated? YES +Cl - CLEAR BKGD; Pregnancy, Urine Negative Negative
[2020-05-07 10:18] LABS: Magnesium 2.1 mg/dL (1.6-2.6)
--- NOTE | 2020-05-07 11:00 | LES_PTH ---
PATIENT: MANE AGUILAR LOC: MS3 U#:[id number] AGE/SX: 49/F ROOM: AL315 RE05/07/[address]: Dr. Meseret Gavin MD : 1970 BED: 1 DIS: 05/12/2020 SPEC #: [id number] RECD: 05/08/20 07:21 STATUS: STEWART RERenee #: [id number] BHUPENDRA: 05/07/20 11:[address]: Meseret Gvain DEPT: SURGICAL PATHOLOGY RECD BY: Jairo Oden ENTERED: 05/08/20 09:19 SP TYPE: Lesion OTHR DR: Dr. Mark Siegel, DO Tissues: A - Skin, NOS B - HERNIA C - Appendix, NOS D - Colon, NOS E - Rectum, NOS F - Colon Donuts G - HERNIA H - Rectum, NOS Procedures: Surgery Specimen Level II Surgery Specimen Level III Surgery Specimen Level V HEADER OPERATION: Open colostomy takedown and appendectomy PRE-OP DIAGNOSIS: Status post left colectomy, status post Phyllis's procedure; perforated diverticulum of large intestine TISSUE SUBMITTED: A - Excision of skin previous scar, B - Hernia sac, C - Appendix, D - Stoma, E - Rectum donut, F - Sigmoid donut, G - Peristomal hernia sac, H - Rectal stump, stitch christensen proximal MICROSCOPIC DIAGNOSIS A. Excision of skin, previous scar: A piece of skin with dermal fibrosis consistent with scar. B. Hernia sac: A piece of fibroadipose and fibroconnective tissue consistent with hernia sac with reactive changes. C. Appendix: Appendix with focal fibrous luminal obliteration, no pathologic diagnosis. D. Stoma: Consistent with colostomy stoma with focal chronic inflammation. E. Rectal donut: Colonic donut, no pathologic diagnosis. F. Sigmoid donut: Colonic donut, no pathologic diagnosis. G. Peristomal hernia sac: A piece of fibroadipose and fibroconnective tissue consistent with hernia sac with reactive changes. H. Rectal stump: Segment of colon, no pathologic diagnosis. Five pericolonic lymph nodes with reactive changes. SJ:sudha 05/11/20 MICROSCOPIC DESCRIPTION Slides are reviewed. GROSS DESCRIPTION A - Received in fixative is one container labeled with the patient's name and designated excision of skin, previous scar. The specimen consists of an elongated fragment of pink-beaver soft tissue measuring 14.5 x 1.8 cm and a depth of excision measuring 0.8 cm on average. The cutaneous surface does not contain gross lesions. Electronic Masking System Operator sections are submitted in two cassettes. B - Received in fixative is one container labeled with the patient's name and designated hernia sac. The specimen consists of an irregular fragment of beaver-yellow fibrofatty tissue measuring 6 x 3 x 1 cm. Serial sections do not reveal mass lesions. Electronic Masking System Operator sections are submitted in one cassette. C - Received in fixative is one container labeled with the patient's name and designated appendix. The specimen consists of a vermiform appendix measuring 5 cm in length and 0.4 cm in average diameter. No gross perforations are evident. Electronic Masking System Operator sections are submitted in one cassette. D - Received in fixative is one container labeled with the patient's name and designated stoma. The specimen consists of a takedown colostomy specimen measuring 4 cm in length and 3 cm in diameter. Serial sections do not reveal mass lesions. Electronic Masking System Operator sections are submitted in one cassette. E - Received in fixative is one container labeled with the patient's name and designated rectal donut. The specimen consists of a glistening beaver mucosal donut measuring 2 cm in diameter and 0.5 cm in thickness. Electronic Masking System Operator sections are submitted in one cassette. F - Received in fixative is one container labeled with the patient's name and designated sigmoid donut. The specimen consists of a glistening beaver mucosal donut measuring 2 cm in diameter and 1 cm in thickness. Electronic Masking System Operator sections are submitted in one cassette. G - Received in fixative is one container labeled with the patient's name and designated peristomal hernia sac. The specimen consists of a saccule fragment of pink-yellow fatty tissue measuring 11 x 7 x 1 cm. Serial sections do not reveal mass lesions. Electronic Masking System Operator sections are submitted in one cassette. H - Received in fixative is one container labeled with the patient's name and designated rectal stump. The specimen consists of a 15.5 cm segment of bowel with attached beaver-yellow fibrofatty tissue. A suture is present signifying the proximal margin which is also stapled. The lumen is thrown into normal folds. No mucosal mass lesions are identified. The segment of bowel as a whole is narrow with a circumference of 3.5 cm. The fibrofatty tissue attached to the bowel wall does not contain mass lesions and contains several nodules resembling lymph nodes. Electronic Masking System Operator sections are submitted in six cassettes as follows: 1 - proximal margin, 2 - distal margin, 3-5 - printing supplies sales representative sections of bowel taken approximately 5 cm apart, 6 - printing supplies sales representative lymph nodes. / AM:sudha 05/08/20 TC:5 CPT: 76679 x2, 67471 x5, 89679
[2020-05-07] MEDS: Lubricating Jelly 60 GM Tube 30 GM TOPICAL (11:29)
--- NOTE | 2020-05-07 15:18 | OP.PCM_ITS ---
Report of Operation Date of Procedure: 05/07/20 Pre-Operative Diagnosis: Status post Phyllis procedure for diverticulitis Post-Operative Diagnosis: Status post Phyllis procedure for perforated diverticulitis, parastomal hernia Surgery/Procedure Performed:: Open colostomy reversal, repair of parastomal hernia with mesh, appendectomy optometry professor: Shaun Wu optometry professor: Kaycee Gayle Type of Anesthesia:: General/Supplemental Anesthesiologist: Jamar Payne Special Medications: Cefotetan 2 g IV x1 Specimen's removed: 1. Excision of skin, previous scar, 2. Hernia sac, 3. Appendix, 4. Stoma, 5. Rectal donut, 6. Sigmoid donut, 7. Parastomal hernia sac, 8. Rectal stump stitch christensen proximal. Drains: UOP 300 cc Estimated Blood Loss (mL): 30 cc Fluids Replaced: 2200 cc Description of Procedure: Patient is: 49-year-old female presents for open colostomy reversal due to previous perforated appendicitis is post Marie's procedure. Patient colonoscopy also showed lesion at the appendiceal orifice which both times have been benign we will also plan for an appendectomy at the same time. Patient was brought to the operating room placed supine on operating table. Timeout was completed verifying correct patient, procedure, site, positioning, and equipment prior to beginning procedure. Patient was placed in low lithotomy position with arms out and with appropriate padding. General anesthesia was induced. Previous scar was excised and previous midline incision was incised with electrocautery down to the fascia. Multiple hernia sacs were noted in the midline. Hernia sacs were excised. There is also noted to be a large parastomal hernia that contains small bowel. Attention was turned to the cecum the mesoappendix was divided with electrocautery. 55 YANI stapler was used to staple across the base of the appendix including some the cecum to include that benign lesion seen on colonoscopy. Next the ostomy was taken down using cautery at the skin. Again this did reveal a large parastomal hernia. The rectal stump was identified. A descending colon was divided with Metzenbaum scissors and ostomy was sent to pathology. The 29 mm anvil fit easily into the descending colon. This was sutured with a pursestring suture of 1-0 Prolene. The sizers were also able to fit into the rectum. However there was a tight turn which were able unable to reach the distal rectal stump. The rectal stump was excised distally using the contour stapler, to help straighten out this curve. Rectal stump was sent to pathology with stitch marking the proximal aspect. The 29 Ethicon EEA was advanced to the end of the rectal stump the spike was opened. This was connected to the anvil making sure not to twist the mesentery and there was no tension on the anastomosis. Stapler was fired. A leak test was done which not show any bubbles or signs of leaks. The large parastomal hernia (measured 6 cm x 4 cm) was closed with multiple 1-0 Prolene [id number] sutures, overlay. Parietene macroporous mesh (lot number [id number] ref [id number]) was secured in place with 2-0 Prolene interrupted sutures. Midline incision was closed with a running 0 Prolene suture. Subcutaneous interrupted sutures of 2-0 Vicryl were to further close the wound, skin was closed with cezar. Patient tolerated procedure well was taken to the postanesthesia care unit in stable condition. - Complications none
[2020-05-07] MEDS: Bupivacaine Mpf 0.5% 30 ML VIAL (15:28)
[2020-05-07] MEDS: Lactated Ringers 1,000 ML 120 ML IV ×2 (16:51→18:17)
[2020-05-07] MEDS: Ketorolac 15 MG/ML Vial IV (19:45)
[2020-05-08 01:45] VITALS: BP 109/64; PULSE 94; RESP 20; TEMP 36.9; O2SAT 96
[2020-05-08] MEDS: Ketorolac 15 MG/ML Vial IV ×2 (01:52→08:55)
[2020-05-08] MEDS: Lactated Ringers 1,000 ML 120 ML IV (02:10)
[2020-05-08 05:25] VITALS: BP 100/62; PULSE 85; RESP 16; TEMP 37.1; O2SAT 97
[2020-05-08 06:49] LABS: Absolute Lymphocyte Count 1.44 X10^3/uL (0.83-4.51); Absolute Neutrophil Count 6.9 X10^3/uL (2.0-7.7); Basophil# 0.03 X10^3/uL; Basophil% 0.3 % (0-1); Eosinophil# 0.02 X10^3/uL; Eosinophils% 0.2 % (0-5); Hematocrit 38.9 % (37-47); Hemoglobin 12.8 g/dL (12.0-15.0); Lymphocyte # 1.44 X10^3/ul (4.0); Lymphocyte % 15.8 % (19-41); Mean Corp Hgb Conc 32.9 g/dL (32-36); Mean Corpuscular Hgb 31.5 pg (27.0-32.0); Mean Corpuscular Volume 95.8 fL (81-99); Mean Platelet Vol. 9.6 fl (6.2-12.0); Monocyte# 0.73 X10^3/uL; NRBC Flagged by Analyzer 0 % (0-5); Neutrophil # 6.87 X10^3/uL (2.7-7.7); Neutrophil % 75.4 % (47-70); Platelet Count 215 K/mm3 (150-450); RBC Distribution Width CV 12.1 % (11.6-14.6); RBC Distribution Width SD 42.2 fl (35.1-43.9); Red Blood Count 4.06 M/mm3 (4.2-5.4); White Blood Count 9.1 K/mm3 (4.4-11.0)
[2020-05-08 07:06] LABS: Anion Gap 2 (5-15); BUN 5 mg/dL (7-18); BUN/Creat Ratio 7.9 RATIO (10-20); Chloride 109 mmol/L (98-107); Creatinine, Serum 0.63 mg/dL (0.55-1.02); EST Glomerular Filtration Rate 107 mL/min (>60); Est Glom Filt Rate - Afr Amer 130 mL/min (>60); Estimated Creatinine Clearance 87.31 ml/min; Glucose 97 mg/dL (74-106); Potassium 3.6 mmol/L (3.5-5.1); Sodium Level 140 mmol/L (136-145)
--- NOTE | 2020-05-08 08:34 | PN.SURG_ITS ---
Subjective: Pt is doing well, denies n/v/flatus, amb to bathroom, taking only toradol for pain currently - Physical Exam Vitals/I&O's: Vital Signs Temp Pulse Resp BP Pulse Ox 98.7 F 85 16 100/62 97 05/08/20 05:25 05/08/20 05:25 05/08/20 05:25 05/08/20 05:25 05/08/20 05:25 Oxygen Flow Rate (L/min) 6 Oxygen Delivery Method Room Air Weight: 192 lb 14.472 oz Body Mass Index (BMI) 34.4 Intake and Output for Last 24 Hours 05/06/20 05/07/20 05/08/20 23:59 23:59 23:59 Intake Total 1382 / 1382 906 / 906 Output Total 650 / 650 300 / 300 Balance 732 / 732 606 / 606 General: Alert, Oriented x3, Cooperative, No apparent distress HEENT: Atraumatic Lungs: Normal air movement Cardiovascular: Regular rate Abdomen: Soft, Non-Distended, Tender - near incisions c/d/i with cezar, no PS Laboratory Results 05/07/20 09:15: Urine Test Negative 05/07/20 09:26: POC Glucose 76 05/07/20 09:45: Magnesium 2.1 05/08/20 05:56: WBC 9.1, RBC 4.06 L, Hgb 12.8, Hct 38.9, MCV 95.8, MCH 31.5, MCHC 32.9, RDW Std Deviation 42.2, RDW Coeff of Maria Eugenia 12.1, Plt Count 215, MPV 9.6, Immature Gran % (Auto) 0.300, Neut % (Auto) 75.4 H, Lymph % (Auto) 15.8 L, Oliver % (Auto) 8.0, Eos % (Auto) 0.2, Baso % (Auto) 0.3, Absolute Neuts (auto) 6.9, Absolute Lymphs (auto) 1.44, Nucleated RBC % 0 05/08/20 05:56: Sodium 140, Potassium 3.6, Chloride 109 H, Carbon Dioxide 29.0, Anion Gap 2 L, BUN 5 L, Creatinine 0.63, Estim Creat Clear Calc 87.31, Est GFR (MDRD) Af Amer 130, Est GFR (MDRD) Non-Af 107, BUN/Creatinine Ratio 7.9 L, Glucose 97, Calcium 8.0 L Current Medications Acetaminophen (Tylenol) 650 mg PO Q6H PRN PRN PRN Reason: Pain Score 1-10/10 Enoxaparin Sodium (Lovenox) 40 mg SC DAILY [facility] Lactated Ringer's () 1,000 mls @ 90 mls/hr IV .Q11H7M [facility] Last Admin: 05/08/20 02:10 Dose: 120 mls/hr Documented by: Pantoprazole Sodium 40 mg/ (Sodium Chloride) 110 mls @ 330 mls/hr IV Q24 [facility] Last Infusion: 05/07/20 18:37 Dose: Infused Documented by: Sodium Chloride () 250 mls @ 15 mls/hr IV .[id number] PRN PRN Reason: Saline Flush Sodium Chloride () 250 mls @ 15 mls/hr IV .[id number] PRN PRN Reason: Additional IVPB Infusion Ketorolac Tromethamine (Toradol (Bkc)) 15 mg IV Q6H PRN PRN PRN Reason: Pain Score 1-10/10 Last Admin: 05/08/20 01:52 Dose: 15 mg Documented by: Morphine Sulfate () 2 - 4 mg IV Q2H PRN PRN PRN Reason: Pain Score 1-10/10 Morphine Sulfate () 2 - 4 mg IV Q2H PRN PRN PRN Reason: Pain Score 1-10/10 Nutritional Formula (Lactose Free) (Ensure Clear) 120 ml PO 4X/DAY [facility] Ondansetron HCl (Zofran) 4 mg IV Q8H PRN PRN PRN Reason: NAUSEA Sodium Chloride () 10 - 40 ml IV UD PRN PRN Reason: SALINE FLUSH Medical Necessity - Tobacco Use Smoking Status: Never smoker Assessment/Plan All Active Problems (Last Reviewed 04/22/20 @ 13:00 by Ana Smith) Perforated diverticulum of large intestine (Acute) Severe sepsis (Acute) 49 y/o female POD #1 s/p ezequiel reversal, appendectomy, peristomal hernia repair with mesh 1. clears until increased BF 2. continue pain control 3. PPI & lovenox 4. encourage amb. in halls.
[2020-05-08 08:54] VITALS: BP 114/70; PULSE 74; RESP 16; TEMP 37.4; O2SAT 97
[2020-05-08] MEDS: Ensure Clear 120 ML Liquid PO (08:55)
[2020-05-08] MEDS: Lactated Ringers 1,000 ML 90 ML IV ×2 (11:36→23:44)
[2020-05-08] MEDS: Acetaminophen 325 MG Tablet 650 MG PO ×2 (11:37→17:58)
[2020-05-08] MEDS: Enoxaparin 40 MG/0.4 ML Syringe SC (11:37)
--- NOTE | 2020-05-08 13:15 | CASEMGMT ---
RN ARIN Face to Face with patient for initial transition planning/care coordination assessment. RN CM introduced self and role at [facility]. Patient sitting in chair, alert and oriented. Patient willing to participate in assessment and is able to answer all questions appropriately. Care providers, pharmacy, and demographics verified. Patient wishes to discharge home, denies need for home health at this time. Patient states she has no further needs or concerns at this time. CM to follow for discharge planning needs that may arise. PCP: Rob[facility] Specialists: [facility] Pharmacy: [facility] Insurance: none Prescription Benefit: none Living Will/HPOA: none LNOK: family, brother Living Arrangements: Patient lives with family in 2 story home. Patient is independent and able to ambulate stairs. Can have first floor setup if needed Transportation: [employer], Driving service DME/HHC: Patient denies DME Disposition Plan: Patient to discharge home with family support and follow-up plans in place. Bahrgavi DEAN, RN, CM
[2020-05-08 14:15] VITALS: BP 122/69; PULSE 70; RESP 16; TEMP 37.2; O2SAT 100
[2020-05-08 19:32] VITALS: BP 129/76; PULSE 82; RESP 16; TEMP 37.2; O2SAT 97
[2020-05-09 01:50] VITALS: BP 118/72; PULSE 89; RESP 16; TEMP 37.1; O2SAT 96
--- NOTE | 2020-05-09 07:13 | PN.SURG_ITS ---
Subjective: Patient had a little bit of nausea yesterday no vomiting denies currently, no flatus, patient has been up walking to the bathroom but has not been walking in the halls. - Physical Exam Vitals/I&O's: Vital Signs Temp Pulse Resp BP Pulse Ox 98.7 F 89 16 118/72 96 05/09/20 01:50 05/09/20 01:50 05/09/20 01:50 05/09/20 01:50 05/09/20 01:50 Oxygen Flow Rate (L/min) 6 Oxygen Delivery Method Room Air Weight: 192 lb 14.472 oz Body Mass Index (BMI) 34.4 Intake and Output for Last 24 Hours 05/07/20 05/08/20 05/09/20 23:59 23:59 23:59 Intake Total 1382 / 1382 3766 / 3766 Output Total 650 / 650 600 / 600 300 / 300 Balance 732 / 732 3166 / 3166 -300 / -300 General: Alert, Oriented x3, Cooperative, No apparent distress Lungs: Normal air movement Cardiovascular: Regular rate Abdomen: Soft, Non-Distended, Tender - Incisions appropriate, dressed, no peritoneal signs Current Medications Acetaminophen (Tylenol) 650 mg PO Q6H PRN PRN PRN Reason: Pain Score 1-10/10 Last Admin: 05/08/20 17:58 Dose: 650 mg Documented by: Enoxaparin Sodium (Lovenox) 40 mg SC DAILY [facility] Last Admin: 05/08/20 11:37 Dose: 40 mg Documented by: Lactated Ringer's () 1,000 mls @ 90 mls/hr IV .Q11H7M [facility] Last Admin: 05/08/20 23:44 Dose: 90 mls/hr Documented by: Pantoprazole Sodium 40 mg/ (Sodium Chloride) 110 mls @ 330 mls/hr IV Q24 [facility] Last Infusion: 05/08/20 09:16 Dose: Infused Documented by: Sodium Chloride () 250 mls @ 15 mls/hr IV .[id number] PRN PRN Reason: Saline Flush Sodium Chloride () 250 mls @ 15 mls/hr IV .[id number] PRN PRN Reason: Additional IVPB Infusion Ketorolac Tromethamine (Toradol (Bkc)) 15 mg IV Q6H PRN PRN PRN Reason: Pain Score 1-10/10 Last Admin: 05/08/20 08:55 Dose: 15 mg Documented by: Morphine Sulfate () 2 - 4 mg IV Q2H PRN PRN PRN Reason: Pain Score 1-10/10 Morphine Sulfate () 2 - 4 mg IV Q2H PRN PRN PRN Reason: Pain Score 1-10/10 Nutritional Formula (Lactose Free) (Ensure Clear) 120 ml PO 4X/DAY [facility] Last Admin: 05/08/20 21:26 Dose: Not Given Documented by: Ondansetron HCl (Zofran) 4 mg IV Q8H PRN PRN PRN Reason: NAUSEA Oxycodone HCl (Oxyir) 5 - 10 mg PO Q4H PRN PRN PRN Reason: Pain Score 4-10/10 Sodium Chloride () 10 - 40 ml IV UD PRN PRN Reason: SALINE FLUSH Medical Necessity - Tobacco Use Smoking Status: Never smoker Assessment/Plan All Active Problems (Last Reviewed 04/22/20 @ 13:00 by Ana Smith) Perforated diverticulum of large intestine (Acute) Severe sepsis (Acute) 49 y/o female POD #2 s/p ezequiel reversal, appendectomy, peristomal hernia repair with mesh 1. clears until increased BF 2. continue pain control 3. PPI & lovenox 4. encourage amb. in halls. Meseret Gavin M.D. Pager: [phone] [facility] [address] [place] [address], [facility], [address] [place] [address] Office: [phone]
[2020-05-09 08:26] VITALS: BP 138/76; PULSE 71; RESP 18; TEMP 37.2; O2SAT 98
[2020-05-09] MEDS: Enoxaparin 40 MG/0.4 ML Syringe SC (09:27)
[2020-05-09] MEDS: Ensure Clear 120 ML Liquid PO ×4 (09:29→21:50)
[2020-05-09] MEDS: oxyCODONE 5 MG Tablet PO (09:34)
[2020-05-09] MEDS: Lactated Ringers 1,000 ML 90 ML IV ×2 (12:50→23:28)
[2020-05-09 14:43] VITALS: BP 124/78; PULSE 67; RESP 18; TEMP 36.6; O2SAT 98
[2020-05-09 15:00] VITALS: RESP 18
[2020-05-09] MEDS: Acetaminophen 325 MG Tablet 650 MG PO (19:47)
[2020-05-09 19:49] VITALS: BP 115/76; PULSE 90; RESP 16; TEMP 36.8; O2SAT 100
[2020-05-10 02:02] VITALS: BP 114/76; PULSE 84; RESP 16; TEMP 36.7; O2SAT 97
[2020-05-10] MEDS: 0.9% Saline Lock 10 ML Syringe IV (03:15)
[2020-05-10] MEDS: Acetaminophen 325 MG Tablet 650 MG PO (07:47)
[2020-05-10 07:50] VITALS: BP 131/88; PULSE 77; RESP 16; TEMP 36.9; O2SAT 100
--- NOTE | 2020-05-10 08:33 | PCM.PN.SRG ---
Subjective: Patient been ambulating the halls having some flatus also some liquid bowel movements. Denies nausea tolerating clears - Physical Exam Vitals/I&O's: Vital Signs Temp Pulse Resp BP Pulse Ox 98.5 F 77 16 131/88 H 100 05/10/20 07:50 05/10/20 07:50 05/10/20 07:50 05/10/20 07:50 05/10/20 07:50 Oxygen Flow Rate (L/min) 6 Oxygen Delivery Method Room Air Weight: 192 lb 14.472 oz Body Mass Index (BMI) 34.4 Intake and Output for Last 24 Hours 05/08/20 05/09/20 05/10/20 23:59 23:59 23:59 Intake Total 3766 / 3766 3537 / 3657 366 / 366 Output Total 600 / 600 1600 / 2200 1150 / 1150 Balance 3166 / 3166 1937 / 1457 -784 / -784 General: Alert, Oriented x3, Cooperative HEENT: Atraumatic Lungs: Normal air movement Cardiovascular: Regular rate Abdomen: Soft, Non-Distended, Tender - Near incision clean dry and intact with cezar. Current Medications Acetaminophen (Tylenol) 650 mg PO Q6H PRN PRN PRN Reason: Pain Score 1-10/10 Last Admin: 05/10/20 07:47 Dose: 650 mg Documented by: Enoxaparin Sodium (Lovenox) 40 mg SC DAILY [facility] Last Admin: 05/09/20 09:27 Dose: 40 mg Documented by: Lactated Ringer's () 1,000 mls @ 50 mls/hr IV .Q20H [facility] Last Infusion: 05/10/20 03:04 Dose: 50 mls/hr Documented by: Pantoprazole Sodium 40 mg/ (Sodium Chloride) 110 mls @ 330 mls/hr IV Q24 [facility] Last Infusion: 05/09/20 09:57 Dose: Infused Documented by: Sodium Chloride () 250 mls @ 15 mls/hr IV .[id number] PRN PRN Reason: Saline Flush Sodium Chloride () 250 mls @ 15 mls/hr IV .[id number] PRN PRN Reason: Additional IVPB Infusion Ketorolac Tromethamine (Toradol (Bkc)) 15 mg IV Q6H PRN PRN PRN Reason: Pain Score 1-10/10 Last Admin: 05/08/20 08:55 Dose: 15 mg Documented by: Morphine Sulfate () 2 - 4 mg IV Q2H PRN PRN PRN Reason: Pain Score 1-10/10 Morphine Sulfate () 2 - 4 mg IV Q2H PRN PRN PRN Reason: Pain Score 1-10/10 Nutritional Formula (Lactose Free) (Ensure Clear) 120 ml PO 4X/DAY [facility] Last Admin: 05/09/20 21:50 Dose: 120 ml Documented by: Ondansetron HCl (Zofran) 4 mg IV Q8H PRN PRN PRN Reason: NAUSEA Oxycodone HCl (Oxyir) 5 - 10 mg PO Q4H PRN PRN PRN Reason: Pain Score 4-10/10 Last Admin: 05/09/20 09:34 Dose: 5 mg Documented by: Sodium Chloride () 10 - 40 ml IV UD PRN PRN Reason: SALINE FLUSH Last Admin: 05/10/20 03:15 Dose: 10 ml Documented by: Medical Necessity - Tobacco Use Smoking Status: Never smoker Assessment/Plan All Active Problems (Last Reviewed 04/22/20 @ 13:00 by Ana Smith) Perforated diverticulum of large intestine (Acute) Severe sepsis (Acute) 49 y/o female POD #3 s/p ezequiel reversal, appendectomy, peristomal hernia repair with mesh 1. Advance to full liquids 2. continue pain control 3. PPI & lovenox 4. encourage amb. in halls. Meseret Gavin M.D. Pager: [phone] [facility] [address] [place] [address], [address] [place] [id number] Office: [phone]
[2020-05-10] MEDS: Enoxaparin 40 MG/0.4 ML Syringe SC (10:38)
[2020-05-10] MEDS: Ondansetron 4 MG/2 ML Vial IV (10:42)
[2020-05-10 11:44] VITALS: BP 128/82; PULSE 78; RESP 16; TEMP 36.8; O2SAT 99
[2020-05-10] MEDS: Ensure Clear 120 ML Liquid PO ×2 (14:53→20:44)
[2020-05-10 15:39] VITALS: BP 126/85; PULSE 81; RESP 16; TEMP 37.1; O2SAT 100
[2020-05-10] MEDS: Lactated Ringers 1,000 ML 50 ML IV (17:14)
[2020-05-10 20:44] VITALS: BP 127/81; PULSE 92; RESP 16; TEMP 37.2; O2SAT 98
[2020-05-11 02:18] VITALS: BP 128/82; PULSE 93; RESP 17; TEMP 37.2; O2SAT 97
[2020-05-11 06:40] LABS: Anion Gap 6 (5-15); BUN 5 mg/dL (7-18); BUN/Creat Ratio 11.8 RATIO (10-20); Calcium,Total 7.9 mg/dL (8.5-10.1); Chloride 108 mmol/L (98-107); Creatinine, Serum 0.42 mg/dL (0.55-1.02); EST Glomerular Filtration Rate 170 mL/min (>60); Est Glom Filt Rate - Afr Amer 205 mL/min (>60); Estimated Creatinine Clearance 130.97 ml/min; Glucose 86 mg/dL (74-106); Magnesium 1.5 mg/dL (1.6-2.6); Potassium 3.2 mmol/L (3.5-5.1); Sodium Level 140 mmol/L (136-145)
--- NOTE | 2020-05-11 07:40 | PCM.PN.SRG ---
Subjective: Patient pain is still controlled well, ambulating having some bowel movement and flatus however still not taking much p.o. - Physical Exam Vitals/I&O's: Vital Signs Temp Pulse Resp BP Pulse Ox 98.9 F 93 17 128/82 H 97 05/11/20 02:18 05/11/20 02:18 05/11/20 02:18 05/11/20 02:18 05/11/20 02:18 Oxygen Flow Rate (L/min) 6 Oxygen Delivery Method Room Air Weight: 192 lb 14.472 oz Body Mass Index (BMI) 34.4 Intake and Output for Last 24 Hours 05/09/20 05/10/20 05/11/20 23:59 23:59 23:59 Intake Total 3537 / 3657 1584.34 / 1584.34 350 / 350 Output Total 1600 / 2200 1550 / 1550 150 / 150 Balance 1937 / 1457 34.34 / 34.34 200 / 200 General: Alert, Oriented x3, Cooperative, No apparent distress HEENT: Atraumatic Lungs: Normal air movement Cardiovascular: Regular rate Abdomen: Soft, Non-Distended, Tender - Near incisions clean dry and intact with cezar, no peritoneal signs Laboratory Results 05/11/20 06:00: Sodium 140, Potassium 3.2 L, Chloride 108 H, Carbon Dioxide 26.0, Anion Gap 6, BUN 5 L, Creatinine 0.42 L, Estim Creat Clear Calc 130.97, Est GFR (MDRD) Af Amer 205, Est GFR (MDRD) Non-Af 170, BUN/Creatinine Ratio 11.8, Glucose 86, Calcium 7.9 L, Magnesium 1.5 L Current Medications Acetaminophen (Tylenol) 650 mg PO Q6H PRN PRN PRN Reason: Pain Score 1-08/01 Last Admin: 05/10/20 07:47 Dose: 650 mg Documented by: Enoxaparin Sodium (Lovenox) 40 mg SC DAILY [facility] Last Admin: 05/10/20 10:38 Dose: 40 mg Documented by: Lactated Ringer's () 1,000 mls @ 50 mls/hr IV .Q20H [facility] Last Admin: 05/10/20 17:14 Dose: 50 mls/hr Documented by: Pantoprazole Sodium 40 mg/ (Sodium Chloride) 110 mls @ 330 mls/hr IV Q24 [facility] Last Infusion: 05/10/20 11:15 Dose: Infused Documented by: Sodium Chloride () 250 mls @ 15 mls/hr IV .[id number] PRN PRN Reason: Saline Flush Sodium Chloride () 250 mls @ 15 mls/hr IV .[id number] PRN PRN Reason: Additional IVPB Infusion Magnesium Sulfate () 4 gm in 100 mls @ 25 mls/hr IV X1 ONE Stop: 05/11/20 10:51 Ketorolac Tromethamine (Toradol (Bkc)) 15 mg IV Q6H PRN PRN PRN Reason: Pain Score 1-10/10 Last Admin: 05/08/20 08:55 Dose: 15 mg Documented by: Morphine Sulfate () 2 - 4 mg IV Q2H PRN PRN PRN Reason: Pain Score 1-10/10 Morphine Sulfate () 2 - 4 mg IV Q2H PRN PRN PRN Reason: Pain Score 1-10/10 Nutritional Formula (Lactose Free) (Ensure Clear) 120 ml PO 4X/DAY [facility] Last Admin: 05/10/20 20:44 Dose: 120 ml Documented by: Ondansetron HCl (Zofran) 4 mg IV Q8H PRN PRN PRN Reason: NAUSEA Last Admin: 05/10/20 10:42 Dose: 4 mg Documented by: Oxycodone HCl (Oxyir) 5 - 10 mg PO Q4H PRN PRN PRN Reason: Pain Score 4-10/10 Last Admin: 05/09/20 09:34 Dose: 5 mg Documented by: Sodium Chloride () 10 - 40 ml IV UD PRN PRN Reason: SALINE FLUSH Last Admin: 05/10/20 03:15 Dose: 10 ml Documented by: Medical Necessity - Tobacco Use Smoking Status: Never smoker Assessment/Plan All Active Problems (Last Reviewed 04/22/20 @ 13:00 by Ana Smith) Perforated diverticulum of large intestine (Acute) Severe sepsis (Acute) 49 y/o female POD #4 s/p ezequiel reversal, appendectomy, peristomal hernia repair with mesh 1. Advance to full liquids, patient still does not feel like eating much encourage continued ambulation see how she does today. 2. continue pain control 3. PPI & lovenox 4. encourage amb. in halls. Meseret Gavin M.D. Pager: [phone] [facility] [address] [place] [address], [address] [place] [address] Office: [phone]
[2020-05-11 08:18] VITALS: BP 136/87; PULSE 85; RESP 18; TEMP 36.7; O2SAT 98
[2020-05-11] MEDS: Enoxaparin 40 MG/0.4 ML Syringe SC (08:18)
[2020-05-11] MEDS: Magnesium Sulfate 4gm/100mL 4 GM/100 ML IV.SOLN. IV (09:00)
[2020-05-11 11:38] VITALS: BP 138/83; PULSE 87; RESP 18; TEMP 36.8; O2SAT 95
[2020-05-11 15:41] VITALS: BP 129/77; PULSE 89; RESP 18; TEMP 36.8; O2SAT 98
[2020-05-11 20:16] VITALS: BP 124/76; PULSE 85; RESP 16; TEMP 36.9; O2SAT 97
[2020-05-11] MEDS: Ensure Clear 120 ML Liquid PO (21:54)
[2020-05-12 02:38] VITALS: BP 110/75; PULSE 79; RESP 16; TEMP 37; O2SAT 98
[2020-05-12 08:50] VITALS: BP 127/73; PULSE 70; RESP 16; TEMP 36.8; O2SAT 98
--- NOTE | 2020-05-12 09:56 | PN.SURG_ITS ---
Subjective: Patient is doing well tolerating diet having bowel function pain controlled ready to go home. - Physical Exam Vitals/I&O's: Vital Signs Temp Pulse Resp BP Pulse Ox 98.3 F 70 16 127/73 H 98 05/12/20 08:50 05/12/20 08:50 05/12/20 08:50 05/12/20 08:50 05/12/20 08:50 Oxygen Flow Rate (L/min) 6 Oxygen Delivery Method Room Air Weight: 192 lb 14.472 oz Body Mass Index (BMI) 34.4 Intake and Output for Last 24 Hours 05/10/20 05/11/20 05/12/20 23:59 23:59 23:59 Intake Total 1584.34 / 1584.34 1962.5 / 2082.5 120 / 120 Output Total 1550 / 1550 150 / 600 650 / 650 Balance 34.34 / 34.34 1812.5 / 1482.5 -530 / -530 General: Alert, Oriented x3, Cooperative, No apparent distress HEENT: Atraumatic Lungs: Normal air movement Cardiovascular: Regular rate Abdomen: Soft, Non-Distended, Tender - Near incision, appropriate, no peritoneal signs, incision clean dry and intact with cezar Extremities: No clubbing, No cyanosis, No edema Current Medications Acetaminophen (Tylenol) 650 mg PO Q6H PRN PRN PRN Reason: Pain Score 1-08/01 Last Admin: 05/10/20 07:47 Dose: 650 mg Documented by: Enoxaparin Sodium (Lovenox) 40 mg SC DAILY [facility] Last Admin: 05/11/20 08:18 Dose: 40 mg Documented by: Pantoprazole Sodium 40 mg/ (Sodium Chloride) 110 mls @ 330 mls/hr IV Q24 [facility] Last Infusion: 05/11/20 08:36 Dose: Infused Documented by: Sodium Chloride () 250 mls @ 15 mls/hr IV .[id number] PRN PRN Reason: Saline Flush Sodium Chloride () 250 mls @ 15 mls/hr IV .[id number] PRN PRN Reason: Additional IVPB Infusion Ketorolac Tromethamine (Toradol (Bkc)) 15 mg IV Q6H PRN PRN PRN Reason: Pain Score 1-10 Last Admin: 05/08/20 08:55 Dose: 15 mg Documented by: Morphine Sulfate () 2 - 4 mg IV Q2H PRN PRN PRN Reason: Pain Score 1-10/10 Morphine Sulfate () 2 - 4 mg IV Q2H PRN PRN PRN Reason: Pain Score 1-10/10 Nutritional Formula (Lactose Free) (Ensure Clear) 120 ml PO 4X/DAY [facility] Last Admin: 05/11/20 21:54 Dose: 120 ml Documented by: Ondansetron HCl (Zofran) 4 mg IV Q8H PRN PRN PRN Reason: NAUSEA Last Admin: 05/10/20 10:42 Dose: 4 mg Documented by: Oxycodone HCl (Oxyir) 5 - 10 mg PO Q4H PRN PRN PRN Reason: Pain Score 4-10/10 Last Admin: 05/09/20 09:34 Dose: 5 mg Documented by: Sodium Chloride () 10 - 40 ml IV UD PRN PRN Reason: SALINE FLUSH Last Admin: 05/10/20 03:15 Dose: 10 ml Documented by: Medical Necessity - Tobacco Use Smoking Status: Never smoker Assessment/Plan All Active Problems (Last Reviewed 04/22/20 @ 13:00 by Ana Smith) Perforated diverticulum of large intestine (Acute) Severe sepsis (Acute) 49 y/o female POD #5 s/p ezequiel reversal, appendectomy, peristomal hernia repair with mesh 1. Patient is tolerating Transitional diet plan to DC home, Follow-up next Monday for staple removal 2. continue pain control 3. PPI & lovenox 4. encourage amb. in halls. Meseret Gavin M.D. Pager: [phone] [facility] [address] [place] [address], [facility], [address] [place] [id number] Office: [phone]
--- NOTE | 2020-05-12 09:58 | DCINST_ITS ---
Discharge Diet: - - Transitional diet/low fiber for about 2 weeks Discharge Activity: May Shower - Today placed nothing On the incision abdomen soap and water can run over it during the shower May shower in (days): 0 Lifting Restrictions: No lifting greater than 20 pounds x 4 weeks, avoid buggy rides for 4 weeks Call your doctor if your incision/area has: Continuous Slow Oozing, Sudden Increased Bleeding, Increased Pain/ Swelling, Increased Redness, Foul Smelling Discharge, Swelling at the incision site Call your doctor if you observe: Fever of 101 or Higher Remove Dressing in (days):: 0 - Okay to have no dressing on the incision sites Additional Instructions: Abdominal binder is for comfort only--- ok to remove, would like to try to have in place more often than not for the next 5 days. Allergies/Adverse Reactions: Allergies No Known Allergies Allergy (Verified 05/07/20 09:16) Medications to take at Discharge ibuprofen 200 mg tablet 200 mg PO Q6H 04/17/19 neomycin 500 mg tablet 500 mg PO .COMPLEX #6 tab 04/27/20 Metronidazole 500 mg PO .COMPLEX 04/29/20 Oxycodone HCl/Acetaminophen [Percocet 5/325] 1 - 2 tablet PO Q6H PRN PRN 3 Days #10 tablet 05/12/20 Primary Care Physician: Mark Siegel DO [Primary Care Provider] - Test Results: Test results from this visit will be discussed in further detail at your follow- up appointment, if applicable. Please Follow Up With: Meseret Gavin MD - After 5 PM and on the weekends call [phone] with any concerns When: F/u in the office next Monday-- call for an appt for staple removal
[2020-05-12] MEDS: Ensure Clear 120 ML Liquid PO (10:16)
[2020-05-12] MEDS: 0.9% Saline Lock 10 ML Syringe IV (10:17)
[2020-05-12] MEDS: Enoxaparin 40 MG/0.4 ML Syringe SC (10:21)
--- NOTE | 2020-05-12 10:51 | PCM.DC.SUM ---
Discharge Date and Diagnosis Date of Admission: 08/07/19 Date of Discharge: 05/12/20 - Primary Discharge Diagnosis Acute Problems: Diverticulitis with Phyllis Procedure, s/p colostomy reversal and parastomal hernia repair with mesh - Secondary Discharge Diagnosis Chronic Problems: Chronic Problems (Last Reviewed 04/22/20 @ 13:00 by Ana Smith) Colostomy in place (Chronic) Fatty infiltration of liver (Chronic) Obesity (Chronic) Hospital Course and Treatment Operations: - - Open colostomy reversal, parastomal hernia repair with mesh on 05/12/2020 Summary of Care Provided: The patient is a 49 year old F presented for open colostomy reversalAnd appendectomy. Patient was also found during surgery to have a large parastomal hernia which was repaired with permanent sutures and mesh. The wound also had multiple hernias which was also closed with permanent sutures. Postoperative patient did well was having bowel function by postop day 2 however did not quite feel like eating too much, patient was ambulating the halls. Her appetite did improve patient was able to be DC'd home. - Physical Exam Vitals/I&O's: Vital Signs Temp Pulse Resp BP Pulse Ox 98.3 F 70 16 127/73 H 98 05/12/20 08:50 05/12/20 08:50 05/12/20 08:50 05/12/20 08:50 05/12/20 08:50 Oxygen Flow Rate (L/min) 6 Oxygen Delivery Method Room Air Weight: 192 lb 14.472 oz Body Mass Index (BMI) 34.4 Intake and Output for Last 24 Hours 05/10/20 05/11/20 05/12/20 23:59 23:59 23:59 Intake Total 1584.34 / 1584.34 1962.5 / 2082.5 230 / 230 Output Total 1550 / 1550 150 / 600 650 / 650 Balance 34.34 / 34.34 1812.5 / 1482.5 -420 / -420 General: Alert, Oriented x3, Cooperative, No apparent distress HEENT: Atraumatic Lungs: Normal air movement Cardiovascular: Regular rate Abdomen: Soft, Non-Distended, Tender - Near incision clean dry and intact with staplesNo peritoneal signs Extremities: No clubbing, No cyanosis, No edema Neurological: Cranial nerves II-XII grossly intact Psych/Mental Status: Normal Affect Current Medications Acetaminophen (Tylenol) 650 mg PO Q6H PRN PRN PRN Reason: Pain Score 1-10/10 Last Admin: 05/10/20 07:47 Dose: 650 mg Documented by: Enoxaparin Sodium (Lovenox) 40 mg SC DAILY [facility] Last Admin: 05/12/20 10:21 Dose: 40 mg Documented by: Pantoprazole Sodium 40 mg/ (Sodium Chloride) 110 mls @ 330 mls/hr IV Q24 [facility] Last Infusion: 05/12/20 10:37 Dose: Infused Documented by: Sodium Chloride () 250 mls @ 15 mls/hr IV .[id number] PRN PRN Reason: Saline Flush Sodium Chloride () 250 mls @ 15 mls/hr IV .[id number] PRN PRN Reason: Additional IVPB Infusion Ketorolac Tromethamine (Toradol (Bkc)) 15 mg IV Q6H PRN PRN PRN Reason: Pain Score 1-10/10 Last Admin: 05/08/20 08:55 Dose: 15 mg Documented by: Morphine Sulfate () 2 - 4 mg IV Q2H PRN PRN PRN Reason: Pain Score 1-10/10 Morphine Sulfate () 2 - 4 mg IV Q2H PRN PRN PRN Reason: Pain Score 1-10/10 Nutritional Formula (Lactose Free) (Ensure Clear) 120 ml PO 4X/DAY [facility] Last Admin: 05/12/20 10:16 Dose: 120 ml Documented by: Ondansetron HCl (Zofran) 4 mg IV Q8H PRN PRN PRN Reason: NAUSEA Last Admin: 05/10/20 10:42 Dose: 4 mg Documented by: Oxycodone HCl (Oxyir) 5 - 10 mg PO Q4H PRN PRN PRN Reason: Pain Score 4-10/10 Last Admin: 05/09/20 09:34 Dose: 5 mg Documented by: Sodium Chloride () 10 - 40 ml IV UD PRN PRN Reason: SALINE FLUSH Last Admin: 05/12/20 10:17 Dose: 10 ml Documented by: Discharge Diet: - - Transitional diet/low fiber for about 2 weeks Discharge Activity: May Shower - Today placed nothing On the incision abdomen soap and water can run over it during the shower May shower in (days): 0 Call your doctor if your incision/area has: Continuous Slow Oozing, Sudden Increased Bleeding, Increased Pain/ Swelling, Increased Redness, Foul Smelling Discharge, Swelling at the incision site Call your doctor if you observe: Fever of 101 or Higher Remove Dressing in (days):: 0 - Okay to have no dressing on the incision sites Home Medications: Medications to take at Discharge ibuprofen 200 mg tablet 200 mg PO Q6H 04/17/19 neomycin 500 mg tablet 500 mg PO .COMPLEX #6 tab 04/27/20 Metronidazole 500 mg PO .COMPLEX 04/29/20 Oxycodone HCl/Acetaminophen [Percocet 5/325] 1 - 2 tab PO Q6H PRN PRN 3 Days #10 tab 05/12/20 Following Prescrptions Were Given to Patient: Oxycodone HCl/Acetaminophen [Percocet 5/325] 1 - 2 tab PO Q6H PRN PRN 3 Days #10 tab PRN Reason: Pain Transmission Status: Received by [facility] Primary Care Physician: Mark Siegel DO [Primary Care Provider] - Please Follow Up With: Meseret Gavin MD - After 5 PM and on the weekends call [phone] with any concerns When: F/u in the office next Monday-- call for an appt for staple removal Additional Instructions: Abdominal binder is for comfort only--- ok to remove, would like to try to have in place more often than not for the next 5 days. Disposition: Home Patient Condition:: Good Medical Necessity - Tobacco Use Smoking Status: Never smoker Meaningful Use Info Meaningful Use Diagnoses (Choose all that apply): None applicable
--- NOTE | 2020-05-12 11:37 | PHA.DC.MR ---
Pharmacy Service has performed discharge medication reconciliation for this patient. The patient's discharge medication list was reviewed for discrepancies and discrepancies were resolved. Home Medications ibuprofen 200 mg tablet 200 mg PO Q6H 04/17/19 neomycin 500 mg tablet 500 mg PO .COMPLEX #6 tab 04/27/20 - PRE-OP/COURSE COMPLETED Metronidazole 500 mg PO .COMPLEX 04/29/20 - PRE-OP/COURSE COMPLETED Oxycodone HCl/Acetaminophen [Percocet 5/325] 1 - 2 tab PO Q6H PRN PRN 3 Days #10 tab 05/12/20
== END 2020-05-12 11:19 | disposition home or self-care (01) | DRG 330 ==
LOC: ACINP 08:33 → MS3 15:42
PROVIDERS: Anesthesiology; Admitting Provider Surgery; PCP Family Medicine; Referring Provider Surgery; Visit Provider Surgery
PROC: 0DBE0ZZ Excision of Large Intestine, Open Approach (ICD-10-PCS; CPT 44620; principal; 2020-05-07 10:45)
DX: Z43.3 Encounter for attention to colostomy (principal); K57.20 Diverticulitis of large intestine with perforation and abscess without bleeding; K43.5 Parastomal hernia without obstruction or gangrene; E66.9 Obesity, unspecified; K76.0 Fatty (change of) liver, not elsewhere classified; Z68.34 Body mass index [BMI] 34.0-34.9, adult
CPT/HCPCS: 36415; 80048; 81025; 82962; 83735; 85025; 87635; 88302; 88304; 88305; 88307; 99251; G2023; J7040; J7050; J7120; A4216; C1781; G0463; J2405; U0003

== ENCOUNTER 2024-09-15 16:14 | Emergency (ER) | payer OTHER, SELFPAY ==
[2024-09-15 16:20] VITALS: BP 128/83; PULSE 84; RESP 97; TEMP 36.8; O2SAT 97; BMI 40.8
--- NOTE | 2024-09-15 16:30 | CT_ITS ---
STUDY: CT Abdomen And Pelvis W/ Contrast Injection 09/15/2024 5:58 PM REASON FOR EXAM: Female, 53 years old. ABDOMINAL PAIN Abdominal pain, nausea and vomiting TECHNIQUE: Transaxial images were obtained without oral contrast, and with IV 100mL Isovue-370 intravenous contrast. Individualized dose optimization techniques were used for this CT. COMPARISON: 6.9.19 FINDINGS: The visualized lung bases are unremarkable. The visualized portions of the heart are within normal limits. Unremarkable liver. Unremarkable gallbladder and extrahepatic biliary system. Unremarkable spleen. Unremarkable pancreas. Unremarkable bilateral adrenal glands. No acute findings of the right kidney. No acute findings of the left kidney. Unremarkable visualized stomach. There is a paralytic ileus of the small intestine with mild gaseous distention. Rectosigmoid anastomosis. There is non-visualization of the appendix. There are no acute findings of the abdominal aorta. Unremarkable inferior vena cava. Subcentimeter mesenteric lymph nodes. Unremarkable urinary bladder. Normal visualized uterus. Epigastric ventral hernia containing fat. Lower abdominal wall ventral hernia containing nonobstructed small bowel. Lower pelvic abdominal defect causing herniation of colon and small bowel through the defect. No obstruction. There is an umbilical hernia containing fat. Unremarkable osseous structures. CT/Abdomen/Pelvis W IV Cont ONLY IMPRESSION: (NOT LISTED IN ORDER OF SIGNIFICANCE) Multiple ventral hernias containing small bowel and colon. Presently, no obstruction. Future development of an obstruction cannot be excluded. Small bowel findings suggest an ileus. Other findings as above. Electronically Signed: Victoriano Estrada MD at 18:02 EST ,
--- NOTE | 2024-09-15 16:30 | EDS_ITS ---
HPI HPI - GI History of Present Illness Chief Complaint: Abd Pain Narrative Narrative: 53-year-old female presents with abdominal pain and bloating along with nausea and vomiting that she has had since yesterday. She states yesterday she was not feeling quite well but felt better this morning until later this afternoon. She had eaten lunch. She then began having this feeling of nausea and vomiting and vomited once without any blood in her emesis. She then felt that she had diffuse abdominal pain but may be worse in the left lower quadrant with abdominal bloating that has also improved. She presents via EMS because of the symptoms. Of note, she relates history that she has had diverticulitis in the past, to the point where she had a colon resection and temporarily had colostomy with colostomy reversal. This was approximately 4 5 years ago according to her son. She is feeling overall improved, but presents because of the abdominal pain and bloating accompanied with 1 episode of nausea and vomiting. No exacerbating or alleviating factors. [facility] Medical History (Updated 09/15/24 @ 18:33 by Gerry Michael MD) History of sepsis History of obesity History of diverticulosis Home Medications ?Medication ?Instructions ?Recorded ?Last Taken ?Type ibuprofen 200 mg tablet 200 mg PO Q6H pain 04/17/19 Unknown History neomycin 500 mg tablet 500 mg PO .COMPLEX pre-op 04/27/20 Unknown Rx antibiotics #6 tabs metronidazole 500 mg tablet 500 mg PO .COMPLEX preop 04/29/20 Unknown History pantoprazole 20 mg tablet,delayed 20 mg PO DAILY ##30 05/13/20 Unknown Rx release Allergy/AdvReac Type Severity Reaction Status Date / Time No Known Allergies Allergy Verified 05/18/20 14:53 Family History Mother Cancer kidney Other Heart disease Seizures Surgical History History of hernia repair History of colectomy Social History Smoking Status: Never smoker alcohol intake: never substance use type: does not use what type of physical activity do you participate in: none ROS ROS ED ROS Narrative Constitutional: No fever, no chills. HEENT: No sore throat. No neck pain. No loss of vision. No rhinorrhea. Cardiovascular: No chest pain. No palpitations. No pedal edema. Respiratory: No cough, no shortness of breath. Abdominal: Diffuse abdominal pain, but perhaps more in the left lower quadrant. No epigastric pain. 1 episode of nausea and vomiting. Abdominal bloating, improved. Genitourinary: No dysuria. No hematuria. Musculoskeletal: No myalgias. No arthralgias. Neurologic: No headaches. No dizziness. No lightheadedness. Skin: No rash. No change in color. Psychiatric: No depression. No anxiety. EXAM Physical Exam Narrative Exam Narrative: Afebrile. Vital signs noted. HEENT examination grossly unremarkable. Cardiovascular examination regular rate and rhythm. Lungs are clear to auscultation bilaterally. Abdomen is soft, nontender, with positive bowel sounds. No tympany. Neurological examination nonfocal and nonlateralizing. Const Vital Signs: 09/15/24 16:20 09/15/24 18:15 Temperature 98.2 F 98.4 F Temperature Source Oral Oral Pulse Rate 84 85 Respiratory Rate 97 H 18 Blood Pressure 128/83 H 118/75 Blood Pressure Mean 98 89 Pulse Ox 97 97 Oxygen Delivery Method Room Air Room Air MDM MDM MDM Narrative Medical decision making narrative: Differential diagnosis includes but not limited to diverticulitis versus partial bowel obstruction versus UTI versus pyelonephritis versus colitis versus nonspecific abdominal pain. Patient declined any analgesics or antiemetics currently in the emergency department. I reviewed her laboratory work and she has normal white count of 6.1, hemoglobin 13.4 with hematocrit 39.5, platelet count normal at 196. CMP is significant for chloride of 109 and a glucose of 149 with a normal anion gap of 6. LFTs are grossly unremarkable. Lipase normal at 37 so I doubt pancreatitis. Urinalysis is negative for infection. I do not feel antibiotics are indicated. CT of the abdomen and pelvis with IV contrast was obtained and radiology report reviewed. While there are multiple ventral hernias that contain colon and small bowel, there is no evidence of obstruction currently. They do comment on possible small bowel ileus. However, upon repeat examination at approximately 1830, patient feels improved. Her abdomen remains soft and she has positive bowel sounds. At this point in time, I discussed with them outpatient antiemetics, but she declined. I gave them strict return instructions including increased abdominal bloating, increased nausea and vomiting or pain, new or worsening symptoms. Patient motivated for discharge. She will follow-up with her primary care provider as well. Return instructions to the emergency department were reviewed. Disposition is discharged home in stable condition. History & Record Review Discussion w/independent historian: Patient and Family (Son and father) Lab Data Attestation: I reviewed the patient's lab results. Labs: Laboratory Results - last 24 hr 09/15/24 09/15/24 16:42 17:20 WBC 6.1 RBC 4.28 Hgb 13.4 Hct 39.5 MCV 92.3 MCH 31.3 MCHC 33.9 RDW Std Deviation 41.0 RDW Coeff of Maria Eugenia 12.2 Plt Count 196 MPV 9.2 Immature Gran % (Auto) 0.300 Neut % (Auto) 89.2 H Lymph % (Auto) 6.1 L [place] % (Auto) 3.8 Eos % (Auto) 0.3 Baso % (Auto) 0.3 Absolute Neuts (auto) 5.4 Absolute Lymphs (auto) 0.37 L Nucleated RBC % 0 Sodium 140 Potassium 3.8 Chloride 109 H Carbon Dioxide 24.0 Anion Gap 6 BUN 10 Creatinine 0.69 Estim Creat Clear Calc 107.41 Est GFR (MDRD) Af Amer 115 Est GFR (MDRD) Non-Af 95 BUN/Creatinine Ratio 14.5 Glucose 149 H Calcium 8.8 Total Bilirubin 0.80 AST 24 ALT 24 Alkaline Phosphatase 48 Total Protein 7.6 Albumin 3.5 Globulin 4.1 Albumin/Globulin Ratio 0.9 Lipase 37 Urine Color Straw Urine Clarity Clear Urine pH 8.0 Ur Specific [place] 1.010 Urine Protein Negative Urine Glucose (UA) Normal Urine Ketones 15 H Urine Occult Blood 10 H Urine Nitrite Negative Urine Bilirubin Negative Urine Urobilinogen Normal Ur Leukocyte Esterase Negative Urine RBC 0-5 SEEN Urine WBC 0-5 SEEN Ur Squamous Epith Cells 0-5 SEEN Urine Bacteria RARE Urine Mucus 0 SEEN Radiography Diagnostic Testing: Clinical Impression(s) from Imaging Studies Abdomen/Pelvis CT 09/15/24 16:30 IMPRESSION: (NOT LISTED IN ORDER OF SIGNIFICANCE) Multiple ventral hernias containing small bowel and colon. Presently, no obstruction. Future development of an obstruction cannot be excluded. Small bowel findings suggest an ileus. Other findings as above. Electronically Signed: Victoriano Estrada MD at 18:02 EST , Discharge Plan Triage Chief Complaint: Abd Pain ED Provider: Gerry Michael Dx/Rx/DC Orders Clinical Impression: Abdominal pain, Ileus, Ventral hernia, Vomiting Instructions: Ileus, ED Abdominal Pain Unkn Cause Fem, ED Hernia (Adult), ED Vomiting (Adult) Prescriptions: No Action ibuprofen 200 mg tablet 200 mg PO Q6H metronidazole 500 MG tablet 500 mg PO .COMPLEX Rx Instructions: 500 mg PO Take 2 (two) tablets at 1300, 1500, 2300 neomycin 500 mg tablet 500 mg PO .COMPLEX Qty: 6 0RF Rx Instructions: Take two (2) 500 mg tablets PO at 1300, 1500, 2300 pantoprazole 20 MG tablet,delayed release (DR/EC) 20 mg PO DAILY Qty: 30 3RF Primary Care Provider: Mark Siegel Referrals: Mark Siegel, DO [Primary Care Provider] - 3-5 Days if not improving Activity Restrictions/Additional Instructions: Return with increased nausea and vomiting, increased pain or abdominal bloating, new or worsening symptoms. Start a clear liquid diet and advance as tolerated. Print Language: Stateless Disposition Disposition: Home, Self Care
[2024-09-15 16:48] LABS: Absolute Lymphocyte Count 0.37 X10^3/uL (0.83-4.51); Absolute Neutrophil Count 5.4 X10^3/uL (2.0-7.7); Basophil# 0.02 X10^3/uL; Basophil% 0.3 % (0-1); Eosinophil# 0.02 X10^3/uL; Eosinophils% 0.3 % (0-5); Hematocrit 39.5 % (37-47); Hemoglobin 13.4 g/dL (12.0-15.0); Lymphocyte # 0.37 X10^3/ul (0.83-4.51); Lymphocyte % 6.1 % (19-41); Mean Corp Hgb Conc 33.9 g/dL (32-36); Mean Corpuscular Hgb 31.3 pg (27.0-32.0); Mean Corpuscular Volume 92.3 fL (81-99); Mean Platelet Vol. 9.2 fl (6.2-12.0); Monocyte# 0.23 X10^3/uL; Monocyte% 3.8 % (0-10); NRBC Flagged by Analyzer 0 % (0-5); Neutrophil # 5.41 X10^3/uL (2.7-7.7); Neutrophil % 89.2 % (47-70); POSITIVE DIFFERENTIAL YES; Platelet Count 196 K/mm3 (150-450); RBC Distribution Width CV 12.2 % (11.6-14.6); Red Blood Count 4.28 M/mm3 (4.2-5.4); White Blood Count 6.1 K/mm3 (4.4-11.0)
[2024-09-15 17:05] LABS: ALB/GLOB Ratio 0.9 RATIO (0.9-2.4); AST(SGOT) 24 U/L (15-37); Alanine Aminotransfer ALT/SGPT 24 U/L (13-56); Albumin, Serum 3.5 g/dL (3.2-5.0); Alkaline Phosphatase 48 U/L (45-117); Anion Gap 6 (5-15); BUN 10 mg/dL (7-18); BUN/Creat Ratio 14.5 RATIO (10-20); Calcium,Total 8.8 mg/dL (8.5-10.1); Chloride 109 mmol/L (98-107); Creatinine, Serum 0.69 mg/dL (0.55-1.02); EST Glomerular Filtration Rate 95 mL/min (>60); Est Glom Filt Rate - Afr Amer 115 mL/min (>60); Estimated Creatinine Clearance 107.41 ml/min; Globulin 4.1 g/dL (2.2-4.2); Glucose 149 mg/dL (74-106); Lipase 37 U/L (13-75); Potassium 3.8 mmol/L (3.5-5.1); Protein, Total 7.6 g/dL (6.4-8.2); Sodium Level 140 mmol/L (136-145)
[2024-09-15 17:30] LABS: Mucous, Urine 0 SEEN /hpf (<or=2+)
[2024-09-15 17:32] LABS: Color, Urine Straw (Yellow); Glucose, Dipstick Normal (Normal); Ketone-Dipstick 15 mg/dl (Negative); Leukocyte Esterase-Dipstick Negative /ul (Negative); Nitrite-Dipstick Negative (Negative); Occult Blood-Urine 10 /ul (Negative); Protein-Dipstick Negative (Negative); Urine Bilirubin Dipstick Negative (Negative); Urine Clarity Clear (Clear); Urine Urobilinogen Normal (Normal)
[2024-09-15 17:42] LABS: Bacteria RARE /hpf (None Seen); Red Blood Cells-Urine 0-5 SEEN /hpf (0-5); Squamous Epithelial Cells - UA 0-5 SEEN /hpf (5-10); White Blood Cells 0-5 SEEN /hpf (0-5)
[2024-09-15 18:15] VITALS: BP 118/75; PULSE 85; RESP 18; TEMP 36.9; O2SAT 97
[2024-09-15 18:54] VITALS: BP 118/75; PULSE 85; RESP 18; TEMP 36.9; O2SAT 97
== END 2024-09-15 18:55 | disposition home or self-care (01) ==
PROVIDERS: Emergency Provider Emergency Medicine; PCP Family Medicine; Visit Provider Emergency Medicine
DX: R10.9 Unspecified abdominal pain (principal); K56.7 Ileus, unspecified; R11.10 Vomiting, unspecified; K43.9 Ventral hernia without obstruction or gangrene; R14.0 Abdominal distension (gaseous)
CPT/HCPCS: 74177; 80053; 81001; 83690; 85025; 99284; Q9967; A4216